=== PATIENT | female | born 1980 | race Caucasian/White ===

== ENCOUNTER 2017-02-18 18:46 | Emergency (ER) | payer OTHER ==
[2017-02-18] MEDS ORDERED: Fluor-I-Strip/Ful-Flo OP ONE ×2 (19:08→19:31)
[2017-02-18] MEDS ORDERED: Eye-Stream Solution ONE (19:08)
[2017-02-18] MEDS ORDERED: TETRACAINE 0.5% STERI-UNIT SOL OP ONE (19:12)
--- NOTE | 2017-02-18 19:26 | ERPHSYRPT ---
- History of Present Illness Time Seen by Provider: 02/18/17 19:13 Source: patient Exam Limitations: no limitations Patient Subjective Stated Complaint: PT REPORTS SHE HAD DAILY CONTACTS IN FOR [facility] WHEN SHE TOOK THEM OUT HER RIGHT EYE BECAME IRRITATED-WORSENING WITH TIME Triage Nursing Assessment: PT PINK WARM ET [id number] NOTED TO RIGHT EYE- NO DRAINAGE NOTED Physician History: The patient is a 36-year-old female complaining that she wore her daily contact lenses for week. Beginning yesterday her right I was beginning to itch and burn. It is worse today. The contact is out at this time. She also complains that she "shattered her right heel" 2 years ago. She had surgery with plates. She has an MRI. She was not able to get into her doctor because she was 10 minutes late the other day. She wants something for pain. Location: right eye Severity: moderate Apparent Injury: no Associated Symptoms: pain, burning, itching, sensitivity to light, redness Visual Assistive Devices: Contacts Allergies/Adverse Reactions: No Known Drug Allergies Allergy (Verified 02/18/17 19:02) Hx Tetanus, Diphtheria Vaccination/Date Given: Yes Hx Influenza Vaccination/Date Given: No Hx Pneumococcal Vaccination/Date Given: No Immunizations Up to Date: Yes - Review of Systems Constitutional: No Fever, No Chills Eyes: Eye Pain, Eye Redness, Itchy, Photophobia Ears, Nose, & Throat: No Symptoms Respiratory: No Cough, No Dyspnea Cardiac: No Chest Pain, No Edema, No Syncope Abdominal/Gastrointestinal: No Abdominal Pain, No Nausea, No Vomiting, No Diarrhea Genitourinary Symptoms: No Dysuria Musculoskeletal: No Back Pain, No Neck Pain Skin: No Rash Neurological: No Dizziness, No Focal Weakness, No Sensory Changes Psychological: No Symptoms Endocrine: No Symptoms Hematologic/Lymphatic: No Symptoms Immunological/Allergic: No Symptoms All Other Systems: Reviewed and Negative - Past Medical History Pertinent Past Medical History: Yes Neurological History: No Pertinent History ENT History: No Pertinent History Cardiac History: No Pertinent History Respiratory History: No Pertinent History Endocrine Medical History: No Pertinent History Musculoskeletal History: Fibromyalgia, Other GI Medical History: No Pertinent History History: No Pertinent History Psycho-Social History: Anxiety, Depression, Panic Disorder Female Reproductive Disorders: No Pertinent History Other Medical History: domitila spotted mountain fever. lyme disease - Past Surgical History Past Surgical History: Yes Neuro Surgical History: No Pertinent History Cardiac: No Pertinent History Respiratory: No Pertinent History Gastrointestinal: No Pertinent History Genitourinary: No Pertinent History Musculoskeletal: No Pertinent History Female Surgical History: Tubal Ligation Other Surgical History: port placed and removed, tonsils - Social History Smoking Status: Current every day smoker How long have you smoked: 15 years Exposure to second hand smoke: No Drug Use: marijuana Patient Lives Alone: No - Female History Hx Last Menstrual Period: LAST MONTH Hx Now: No - Nursing Vital Signs Nursing Vital Signs: Initial Vital Signs Temperature 98.9 F 02/18/17 18:58 Pulse Rate 95 H 02/18/17 18:58 Respiratory Rate 20 02/18/17 18:58 Blood Pressure 127/91 02/18/17 18:58 O2 Sat by Pulse Oximetry 96 02/18/17 18:58 Pain Scale Pain Intensity 10 - Physical Exam General Appearance: mild distress Vision Acuity Degree Evaluation Phase: Uncorrected Vision Acuity Right Eye: 20/100 Vision Acuity Left Eye: 20/20 Eye Exam: right eye: conjunctival inflammation, erythema, left eye: normal inspection Ears, Nose, Throat Exam: normal ENT inspection Neck Exam: normal inspection Respiratory Exam: normal breath sounds Cardiovascular Exam: regular rate/rhythm Gastrointestinal Exam: soft Extremity Exam: swelling (right heel and foot) Neurologic: alert Skin Exam: normal color SpO2 Interpretation: normal SpO2: 96 Oxygen Delivery: Room Air Ordered Tests: Medication Summary Discontinued Medications Generic Name Dose Route Start Last Admin Trade Name Freq PRN Reason Stop Dose Admin Eye Irrigation Solution Confirm 02/18/17 19:08 Eye-Stream Solution Administered 02/18/17 19:09 Dose 30 ml .ROUTE .STK-MED ONE Fluorescein Sodium Confirm 02/18/17 19:08 Vouif-A-Klsrg/Ful-Ata Administered 02/18/17 19:09 Dose 1 mg OP .STK-MED ONE Tetracaine HCl Confirm 02/18/17 19:12 Tetracaine 0.5% Steri-Unit Raquel Administered 02/18/17 19:13 Dose 4 ml OP .STK-MED ONE - Departure Time of Disposition: 19:30 Departure Disposition: Home Clinical Impression: Conjunctivitis, Chronic pain of right heel Condition: Stable Critical Care Time: No Referrals: [facility] [Primary Care Provider] - Additional Instructions: You have right eye conjunctivitis. Take the Tobradex drops every 2 hours in the right eye for one week. Leave the contact out of your right eye for one week until healed. You also have chronic pain in her right heel. You were given Toradol 60 mg by IM injection. Take naproxen 500 mg twice a day as needed. Follow-up as scheduled. Prescriptions: Naproxen 500 mg PO BID PRN #30 tablet.
[2017-02-18] MEDS ORDERED: TETRACAINE 0.5% STERI-UNIT SOL OP STA (19:31)
[2017-02-18] MEDS ORDERED: TORAdol 30 mg Injection IM ONE (19:32)
[2017-02-18] MEDS ORDERED: TORAdol 30 mg Injection ONE (19:42)
[2017-02-18 20:04] VITALS: BP 116/79; PULSE 90; O2SAT 99
[2017-02-18] MEDS ORDERED: Eye-Stream Solution OP ONE (20:07)
== END 2017-02-18 20:10 | disposition home or self-care (01) ==
LOC: ED 18:46
DX: H10.9 Unspecified conjunctivitis (principal); M79.671 Pain in right foot; G89.29 Other chronic pain
CPT/HCPCS: 96372; 99284; J1885; A9270-GY

== ENCOUNTER 2017-02-25 20:36 | Emergency (ER) | payer OTHER ==
[2017-02-25 21:53] VITALS: O2SAT 95
--- NOTE | 2017-02-25 22:12 | ERPHSYRPT ---
- History of Present Illness Time Seen by Provider: 02/25/17 22:07 Source: patient, family Exam Limitations: no limitations Patient Subjective Stated Complaint: states waas bitten by an unknown dog today at 1300 in the [place] area. PW site at top left foot and at the back of the heel Triage Nursing Assessment: PW site noted to top of left foot approx 1cm with no active bleeding noted. PW site on achilles area with no active bleeding noted. + pedal pulse present. states a unknown dog bit her while she was on her moped. Physician History: pt was bitten by a dog unknown today - has had tet shot previously tender left ankle and achilles with small lacs Method of Injury: other (dog bite) Occurred: this afternoon Quality: constant, throbbing Severity of Pain-Max: moderate Severity of Pain-Current: moderate Lower Extremities Pain: leg: left, ankle: left Modifying Factors: Improves With: immobilization, movement Associated Symptoms: unable to bear weight Allergies/Adverse Reactions: No Known Drug Allergies Allergy (Verified 02/25/17 23:37) Hx Tetanus, Diphtheria Vaccination/Date Given: Yes Hx Influenza Vaccination/Date Given: Yes Hx Pneumococcal Vaccination/Date Given: No - Review of Systems Constitutional: No Fever, No Chills Eyes: No Symptoms Ears, Nose, & Throat: No Symptoms Respiratory: No Cough, No Dyspnea Cardiac: No Chest Pain, No Edema, No Syncope Abdominal/Gastrointestinal: No Abdominal Pain, No Nausea, No Vomiting, No Diarrhea Genitourinary Symptoms: No Dysuria Musculoskeletal: No Back Pain, No Neck Pain Skin: Other (lac left ankle and achilles), No Rash Neurological: No Dizziness, No Focal Weakness, No Sensory Changes Psychological: No Symptoms Endocrine: No Symptoms All Other Systems: Reviewed and Negative - Past Medical History Pertinent Past Medical History: Yes Neurological History: No Pertinent History ENT History: No Pertinent History Cardiac History: No Pertinent History Respiratory History: No Pertinent History Endocrine Medical History: No Pertinent History Musculoskeletal History: Fibromyalgia, Other GI Medical History: No Pertinent History History: No Pertinent History Psycho-Social History: Anxiety, Depression, Panic Disorder Female Reproductive Disorders: No Pertinent History Other Medical History: domitila spotted mountain fever. lyme disease - Past Surgical History Past Surgical History: Yes Neuro Surgical History: No Pertinent History Cardiac: No Pertinent History Respiratory: No Pertinent History Gastrointestinal: No Pertinent History Genitourinary: No Pertinent History Musculoskeletal: No Pertinent History Female Surgical History: Tubal Ligation Other Surgical History: port placed and removed, tonsils - Social History Smoking Status: Current every day smoker How long have you smoked: 15 years Exposure to second hand smoke: No Drug Use: none Patient Lives Alone: No - Female History Hx Now: No - Nursing Vital Signs Nursing Vital Signs: Initial Vital Signs Temperature 97.9 F 02/25/17 21:42 Pulse Rate 78 02/25/17 21:42 Respiratory Rate 16 02/25/17 21:42 Blood Pressure 124/55 02/25/17 21:42 O2 Sat by Pulse Oximetry 95 02/25/17 21:42 Pain Scale Pain Intensity 5 - Physical Exam General Appearance: no apparent distress, alert Eyes, Ears, Nose, Throat Exam: moist mucous membranes Neck Exam: non-tender, supple Cardiovascular/Respiratory Exam: chest non-tender, normal breath sounds, regular rate/rhythm, no respiratory distress Gastrointestinal/Abdominal Exam: non-tender, guarding Back Exam: normal inspection, No vertebral tenderness Hips Exam: bilateral: non-tender, normal inspection, normal range of motion, no evidence of injury Legs Exam: right leg: non-tender, normal inspection, normal range of motion, no evidence of injury, left leg: pain, soft tissue tenderness, swelling, other ( lac posterior) Knees Exam: bilateral knee: non-tender, normal inspection, normal range of motion, no evidence of injury Ankle Exam: right ankle: non-tender, normal inspection, normal range of motion, no evidence of injury, left ankle: abrasions/laceration, bone tenderness, pain, soft tissue tenderness, swelling Foot Exam: bilateral foot: non-tender, normal inspection, normal range of motion , no evidence of injury Neuro/Tendon Exam: normal sensation, normal motor functions Mental Status Exam: alert, oriented x 3, cooperative Skin Exam: normal color, warm, dry SpO2 Interpretation: normal SpO2: 95 Oxygen Delivery: Room Air - Course Nursing assessment & vital signs reviewed: Yes - CT Exams Left Lower Extremity CT Interpretation: Tele-radiologist Report, No Fracture, Other (soft tissue gas as in wound, no mention of tendon disruption or bone penetration) Ordered Tests: Active Orders 24 hr Category Date Time Status LOWER EXTREMITY WO CONTRAST [CT] Stat Exams 02/25/17 22:12 Taken Medication Summary Discontinued Medications Generic Name Dose Route Start Last Admin Trade Name Freq PRN Reason Stop Dose Admin Amoxicillin/Clavulanate Potassium 875 mg 02/25/17 23:22 02/25/17 23:41 Augmentin 875-125 Tablet PO 02/25/17 23:23 875 mg STAT ONE Administration Amoxicillin/Clavulanate Potassium Confirm 02/25/17 23:39 Augmentin 875-125 Tablet Administered 02/25/17 23:40 Dose 875 mg .ROUTE .STK-MED ONE Lidocaine HCl Confirm 02/25/17 23:58 Xylocaine 1% Hcl 20 Ml Mdv Administered 02/25/17 23:59 Dose 1 ml .ROUTE .STK-MED ONE Lidocaine HCl 5 ml 02/26/17 00:06 02/26/17 00:09 Xylocaine 1% Hcl 20 Ml Mdv IJ 02/26/17 00:07 5 ml STAT ONE Administration Rabies Immune Globulin 1,000 unit 02/25/17 23:12 02/25/17 23:41 Imogam Rabies-Ht 150 Unit/Ml 2ml IM 02/25/17 23:13 Not Given .ONCE ONE Rabies Vaccine Human Diploid Cell 2.5 unit 02/25/17 23:09 02/25/17 23:53 Imovax Rabies Vaccine 2.5 Units IM 02/25/17 23:10 Not Given .ONCE ONE - Progress Progress: improved, re-examined Progress Note: 02/25/17 23:41 after discussion of risk and benfit of rabies vaccine the pt prefers to decline at this time and attempt to locate the animal and will f/u to [facility] Dept monday for rabies advise and reconsider at that time and also try to locate and quarantine the animal; SHe will also have wound check by PCP for her wounds. monday and return meantime if further concerns. 02/26/17 00:20 pt advised that even with CT there could be infection develop inthe tendon area and that penetration could have occurred and may ultimately require drainage if infection occurs 02/26/17 00:23 discussed risk/benefit of suturing and pt wishes limited closure of largest wound; Counseled pt/family regarding: diagnosis, need for follow-up, rad results - Departure Time of Disposition: 23:43 Departure Disposition: Home Clinical Impression: Dog bite of ankle Condition: Good Critical Care Time: No Referrals: [facility] [Primary Care Provider] - Instructions: Animal Bites Additional Instructions: followup with your Dr. to recheck wound Monday and return meantime if any concern; ask police to help locate and quarantine the suspected animals, and report to health dept monday for further discussion and advice as it may be best to begin shots if animal cannot be located. although the CT di dnot show it, a tendon injury could still be present requiring treatment by ortho dr or an infection could devlope also requiring open drainage; Prescriptions: Amoxicillin/Potassium Clav [Augmentin 875-125 Tablet] 875 mg PO BID #20 tablet Hydrocodone/Acetaminophen [[place] 5-325 Tablet] 1 each PO Q4-6HPRN PRN #10 tablet PRN Reason: Pain
[2017-02-25] MEDS ORDERED: IMOVAX RABIES VACCINE 2.5 UNITS IM ONE (23:09)
[2017-02-25] MEDS ORDERED: RABIES IMMUNE GLOBULIN 150 UNIT/ML IM ONE (23:12)
[2017-02-25] MEDS ORDERED: Augmentin 875-125 Tablet PO ONE (23:22)
[2017-02-25] MEDS ORDERED: Augmentin 875-125 Tablet ONE (23:39)
[2017-02-25] MEDS ORDERED: XYLOCAINE 1% HCL 20 ML MDV ONE (23:58)
[2017-02-26] MEDS ORDERED: XYLOCAINE 1% HCL 20 ML MDV IJ ONE (00:06)
[2017-02-26 01:13] VITALS: BP 110/70; PULSE 76
--- NOTE | 2017-02-26 08:43 | XRAY ---
Indication: Dog bite. Multiple contiguous axial images obtained through the left ankle. Sagittal and coronal reformatted images obtained. Comparison: None Left ankle mortise appears anatomic. No effusion. There are several tiny air bubbles in the anterior lateral ankle and posterior lateral lower leg soft tissues with mild soft tissue swelling. No acute fracture, dislocation, or radiopaque foreign body. Remaining visualized noncontrasted soft tissues unremarkable. Impression: Soft tissue swelling and air bubbles as detailed presumed related to injury. Gas-forming bacterial infection not completely excluded. Remaining CT left ankle is negative. Comment: Preliminary interpretation was made by [facility]. No discrepancy. CTDI 63.19
== END 2017-02-26 01:11 | disposition home or self-care (01) ==
LOC: ED 20:36
DX: S91.052A Open bite, left ankle, initial encounter (principal); W54.0XXA Bitten by dog, initial encounter
CPT/HCPCS: 73700; 90376; 90675; 96372; 99284; A9270-GY

== ENCOUNTER 2017-10-03 17:45 | Emergency (ER) | payer OTHER ==
[2017-10-03 18:00] VITALS: BP 143/94; PULSE 88; O2SAT 99
[2017-10-03] MEDS ORDERED: Eye-Stream Solution OP ONE (18:14)
[2017-10-03] MEDS ORDERED: Fluor-I-Strip/Ful-Flo OP ONE ×2 (18:14→18:17)
[2017-10-03] MEDS ORDERED: TETRACAINE 0.5% STERI-UNIT SOL OP STA (18:14)
[2017-10-03] MEDS ORDERED: TETRACAINE 0.5% STERI-UNIT SOL OP ONE (18:17)
[2017-10-03] MEDS ORDERED: Eye-Stream Solution ONE (18:17)
--- NOTE | 2017-10-03 18:30 | ERPHSYRPT ---
- History of Present Illness Time Seen by Provider: 10/03/17 18:10 Source: patient Exam Limitations: no limitations Patient Subjective Stated Complaint: pt reports she fell asleep with her contacts in a few days ago-reports pain redness to left eye-states when she wakes up it is matted shut Triage Nursing Assessment: pt pink warm and dry-redness noted to left eye-pt reports vision to be 200/100-no drainage noted at this time-no tearing noted at this time Physician History: This is a 36-year-old white female she arrives with complaint of pain in her left eye symptoms for 3-4 days. She states she left her contacts in overnight 3-4 days ago she is having pain and drainage in her left eye. Timing/Duration: day(s) (3-4 days) Location: left eye Apparent Injury: yes (patient states she left her contact in too long left eye) Associated Symptoms: pain, burning, sensitivity to light, redness, matting Visual Assistive Devices: Contacts Chemical Exposure: No Trauma: No Allergies/Adverse Reactions: No Known Drug Allergies Allergy (Verified 10/03/17 18:00) Hx Tetanus, Diphtheria Vaccination/Date Given: Yes (2014) Hx Influenza Vaccination/Date Given: No Hx Pneumococcal Vaccination/Date Given: No Immunizations Up to Date: Yes - Review of Systems Constitutional: No Fever, No Chills Eyes: Discharge, Eye Pain, Eye Redness, Tearing Ears, Nose, & Throat: No Symptoms Respiratory: No Cough, No Dyspnea Cardiac: No Chest Pain, No Edema, No Syncope Abdominal/Gastrointestinal: No Abdominal Pain, No Nausea, No Vomiting, No Diarrhea Genitourinary Symptoms: No Dysuria Musculoskeletal: No Back Pain, No Neck Pain Skin: No Rash Neurological: No Dizziness, No Focal Weakness, No Sensory Changes Psychological: No Symptoms Endocrine: No Symptoms All Other Systems: Reviewed and Negative - Past Medical History Pertinent Past Medical History: Yes Neurological History: No Pertinent History ENT History: No Pertinent History Cardiac History: No Pertinent History Respiratory History: No Pertinent History Endocrine Medical History: No Pertinent History Musculoskeletal History: Fibromyalgia, Other GI Medical History: No Pertinent History History: No Pertinent History Psycho-Social History: Anxiety, Depression, Panic Disorder Female Reproductive Disorders: No Pertinent History Other Medical History: domitila spotted mountain fever. lyme disease - Past Surgical History Past Surgical History: Yes Neuro Surgical History: No Pertinent History Cardiac: No Pertinent History Respiratory: No Pertinent History Gastrointestinal: No Pertinent History Genitourinary: No Pertinent History Musculoskeletal: No Pertinent History Female Surgical History: Tubal Ligation Other Surgical History: port placed and removed, tonsils - Social History Smoking Status: Current every day smoker How long have you smoked: yrs Exposure to second hand smoke: No Drug Use: none Patient Lives Alone: No - Female History Hx Now: No - Nursing Vital Signs Nursing Vital Signs: Initial Vital Signs Temperature 97.9 F 10/03/17 17:56 Pulse Rate 88 10/03/17 17:56 Respiratory Rate 18 10/03/17 17:56 Blood Pressure 143/94 10/03/17 17:56 O2 Sat by Pulse Oximetry 99 10/03/17 17:56 Pain Scale Pain Intensity 0 - Physical Exam General Appearance: moderate distress, alert (he regards to both eyes are disallow ) Vision Acuity Degree Evaluation Phase: Uncorrected Vision Acuity Right Eye: 20/100 Vision Acuity Left Eye: 20/100 Eye Exam: right eye: normal inspection, PERRL, left eye: other (patient's left eye cornea appears to be somewhat opaque, both lids are everted left side no foreign body left eye is soft left eye stained with flouriscein diffuse uptake) , bilateral eye: vision changes (patient 20/100 both eyes) Ears, Nose, Throat Exam: normal ENT inspection, TMs normal, pharynx normal (S weird trauma related to that was ) Neck Exam: normal inspection, full range of motion Respiratory Exam: normal breath sounds, lungs clear, airway intact Cardiovascular Exam: regular rate/rhythm, normal heart sounds, normal peripheral pulses, No murmur Gastrointestinal Exam: soft, normal bowel sounds, No tenderness, No distention, No mass, No guarding Extremity Exam: normal inspection, normal range of motion Neurologic: alert, oriented x 3, cooperative, supervisor cap and hat production II-XII nml as tested Skin Exam: normal color SpO2 Interpretation: normal (99%) SpO2: 99 Oxygen Delivery: Room Air - Course Nursing assessment & vital signs reviewed: Yes Ordered Tests: Active Orders 24 hr Category Date Time Status Visual Acuity STAT Care 10/03/17 18:14 Active Medication Summary Discontinued Medications Generic Name Dose Route Start Last Admin Trade Name Freq PRN Reason Stop Dose Admin Ciprofloxacin 2.5 ml 10/03/17 18:48 Ciloxan Ophth OP 10/03/17 18:49 STAT ONE Eye Irrigation Solution 15 ml 10/03/17 18:14 10/03/17 18:19 Eye-Stream Solution OP 10/03/17 18:15 15 ml STAT ONE Administration Eye Irrigation Solution Confirm 10/03/17 18:17 Eye-Stream Solution Administered 10/03/17 18:18 Dose 30 ml .ROUTE .STK-MED ONE Fluorescein Sodium 1 mg 10/03/17 18:14 10/03/17 18:19 Wxtgg-B-Xjjtn/Ful-Ata OP 10/03/17 18:15 1 mg STAT ONE Administration Fluorescein Sodium Confirm 10/03/17 18:17 Yypmh-K-Rbsur/Ful-Ata Administered 10/03/17 18:18 Dose 1 mg OP .STK-MED ONE Tetracaine HCl 4 ml 10/03/17 18:14 10/03/17 18:19 Tetracaine 0.5% Steri-Unit Raquel OP 10/03/17 18:15 4 ml STAT STA Administration Tetracaine HCl Confirm 10/03/17 18:17 Tetracaine 0.5% Steri-Unit Raquel Administered 10/03/17 18:18 Dose 4 ml OP .STK-MED ONE - Progress Progress: improved Progress Note: 10/03/17 18:31 This is a 36-year-old white female she arrives with complaint of left eye pain for 3-4 days she states she left her contact in overnight 3-4 days ago she is having pain in her left eye he states that she has discharge from her left eye she has erythema to the left eye. Patient has bilateral vision of 20/100. On examination both lids are everted the patient's left eye no foreign bodies are seen tetracaine 0.5% was instilled in the left eye to facilitate examination. There appear to be area which appear to be somewhat opacified lying on top of the patient's left eye. She is stained with floor seen this shows somewhat diffuse uptake of the floor same. Left eye is rinsed with sterilized wash solution. Patient appears to have corneal ulceration. Will contact patient's sales representative groceries. 10/03/17 18:[address] Melecio Macdonald, (the patient's sales representative groceries), I discussed the patient's clinical presentation as well as her physical findings. He requested that we place the patient on Ciloxan drops. Will also place patient on analgesia (oral) he states he would like to see the patient at 8:40 AM tomorrow morning Will discharge patient patient is to not wear her contacts. . - Departure Time of Disposition: 18:42 Departure Disposition: Home Clinical Impression: Corneal ulceration Qualifiers: Laterality: left Qualified Code(s): H16.002 - Unspecified corneal ulcer, left eye Condition: Fair Critical Care Time: No Referrals: DOCTOR,NO FAMILY [Primary Care Provider] - Additional Instructions: Return home. Ciloxan drops 0.3% one to 2 drops left eye 4 times a day 5 days. Bradley as prescribed. Follow-up with Dr. Melecio Macdonald tomorrow morning at 8:40 AM. Do not wear your contacts. Drive home with windows rolled up to avoid foreign bodies in your left eye we will not be able to feel these until tetracaine wears off. Return for acute distress or for severe symptoms Bradley as prescribed. no TV watching, computers, or reading Prescriptions: Hydrocodone/Acetaminophen [[place] 5-325 Tablet] 1 each PO Q4-6HPRN PRN #10 tablet MDD 6 tablets PRN Reason: Pain
[2017-10-03] MEDS ORDERED: Ciloxan OPHTH OP ONE (18:48)
[2017-10-03] MEDS ORDERED: Ciloxan OPHTH ONE (18:54)
== END 2017-10-03 19:09 | disposition home or self-care (01) ==
LOC: ED 17:45
DX: H16.002 Unspecified corneal ulcer, left eye (principal)
CPT/HCPCS: 99283; A9270-GY

== ENCOUNTER 2017-12-22 10:12 | Emergency (ER) | payer OTHER ==
[2017-12-22 10:37] VITALS: BP 118/77; PULSE 93; O2SAT 98
--- NOTE | 2017-12-22 10:44 | ERPHSYRPT ---
- History of Present Illness Time Seen by Provider: 12/22/17 10:38 Source: patient Exam Limitations: no limitations Patient Subjective Stated Complaint: states has had abscesses on right forearm and left axilla for one week. does not have a family doctor and has had no treatment for the abscess. Triage Nursing Assessment: small red area noted to right forearm and left axilla. no drainage noted. no fever. denies any other symptoms. Physician History: 37-year-old white female with a raised area on her right mid forearm ulnar aspect since today, also with several small pustules/abscesses which appears to have been popped in the past for 3 weeks. No current drainage. No fevers no nausea no vomiting. Patient states the areas are tender. Past medical history includes fibromyalgia, anxiety, depression, panic disorder , [place] spotted fever, Lyme disease Past surgical history includes tubal ligation, port placed, tonsils removed. Social history positive occasional alcohol use positive tobacco denies illicit drug use. Timing/Duration: other (axillary area for 3 weeks right forearm since last pm.) Severity: moderate Modifying Factors: Improves With: nothing Associated Symptoms: other (bumps in left axilla 3 weeks, bump on right forearm since today), No nausea, No vomiting, No abdominal pain, No shortness of breath, No heartburn, No diaphoresis, No cough, No chills, No chest pain, No fever, No headaches, No loss of appetite, No malaise, No rash, No syncope, No seizure, No weakness Allergies/Adverse Reactions: No Known Drug Allergies Allergy (Verified 12/22/17 10:30) Hx Tetanus, Diphtheria Vaccination/Date Given: Yes Hx Influenza Vaccination/Date Given: No Hx Pneumococcal Vaccination/Date Given: No - Review of Systems Constitutional: No Fever, No Chills Eyes: No Symptoms Ears, Nose, & Throat: No Symptoms Respiratory: No Cough, No Dyspnea Cardiac: No Chest Pain, No Edema, No Syncope Abdominal/Gastrointestinal: No Abdominal Pain, No Nausea, No Vomiting, No Diarrhea Genitourinary Symptoms: No Dysuria Musculoskeletal: No Back Pain, No Neck Pain Skin: Other (Several firm areas in left axilla for 3 weeks, raised area left forearm since last pm), No Rash Neurological: No Dizziness, No Focal Weakness, No Sensory Changes Psychological: No Symptoms Endocrine: No Symptoms All Other Systems: Reviewed and Negative - Past Medical History Pertinent Past Medical History: Yes Neurological History: No Pertinent History ENT History: No Pertinent History Cardiac History: No Pertinent History Respiratory History: No Pertinent History Endocrine Medical History: No Pertinent History Musculoskeletal History: Fibromyalgia, Other GI Medical History: No Pertinent History History: No Pertinent History Psycho-Social History: Anxiety, Depression, Panic Disorder Female Reproductive Disorders: No Pertinent History Other Medical History: domitila spotted [place] fever. lyme disease - Past Surgical History Past Surgical History: Yes Neuro Surgical History: No Pertinent History Cardiac: No Pertinent History Respiratory: No Pertinent History Gastrointestinal: No Pertinent History Genitourinary: No Pertinent History Musculoskeletal: No Pertinent History Female Surgical History: Tubal Ligation Other Surgical History: port placed and removed, tonsils - Social History Smoking Status: Current every day smoker How long have you smoked: 23 Exposure to second hand smoke: Yes Drug Use: none Patient Lives Alone: No - Female History Hx Last Menstrual Period: 11/19/17 Hx Now: No - Nursing Vital Signs Nursing Vital Signs: Initial Vital Signs Temperature 98.3 F 12/22/17 10:23 Pulse Rate 93 H 12/22/17 10:23 Respiratory Rate 16 12/22/17 10:23 Blood Pressure 118/77 12/22/17 10:23 O2 Sat by Pulse Oximetry 98 12/22/17 10:23 Pain Scale Pain Intensity 6 - Physical Exam General Appearance: no apparent distress, alert Eye Exam: PERRL/EOMI, eyes nml inspection Ears, Nose, Throat Exam: normal ENT inspection, TMs normal, pharynx normal, moist mucous membranes Neck Exam: normal inspection, non-tender, supple, full range of motion Respiratory Exam: normal breath sounds, lungs clear, No respiratory distress Cardiovascular Exam: regular rate/rhythm, normal heart sounds, normal peripheral pulses Gastrointestinal/Abdomen Exam: soft, normal bowel sounds, No tenderness, No mass Back Exam: normal inspection, normal range of motion, No CVA tenderness, No vertebral tenderness Extremity Exam: normal inspection, normal range of motion, pelvis stable Neurologic Exam: alert, oriented x 3, cooperative, 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, normal mood/affect, nml cerebellar function, nml station & gait, sensation nml, No motor deficits Skin Exam: other (right forearm with raised area similar to pustule but not draining 0.5 cm underlying area firm flat 2 cm occurs on ulnar aspect mid forearm (right), left axilla with several areas appear to pustules which have been popped in past, firm, no lymphadenopathy) SpO2 Interpretation: normal (98%) SpO2: 98 Oxygen Delivery: Room Air - Course Nursing assessment & vital signs reviewed: Yes - Progress Progress: improved Progress Note: 12/22/17 10:44 This is a 37-year-old white female she arrives with several areas in her left axilla the appear to have pustules which have been popped this is very likely is her adenitis it does not appear to be active at this time. She does have a 0.5 cm raised area right mid forearm ulnar aspect with underlying 2 cm area which is firm with palpation. Possibly could be early abscess not ready to be drained. Will go ahead place patient on Bactrim DS one orally twice a day for 10 days. Patient clean the area apply bacitracin daily. Tylenol or Advil or pain. - Departure Time of Disposition: 10:45 Departure Disposition: Home Clinical Impression: Hidradenitis axillaris, Pustule Condition: Fair Critical Care Time: No Referrals: DOCTOR,NO FAMILY [Primary Care Provider] - Additional Instructions: Return home clean area and apply bacitracin daily. Bactrim DS as prescribed. Tylenol every 4 hours or Motrin every 6 hours as needed for pain. Follow-up with your family doctor if symptoms are worse, no better in 48 hours or persist longer than one week. Return for acute distress or for severe symptoms. Prescriptions: Smz/Tmp Ds Tablet [Bactrim Ds Tablet] 1 tab PO BID #20 tablet
== END 2017-12-22 10:55 | disposition home or self-care (01) ==
LOC: ED 10:12
DX: L73.2 Hidradenitis suppurativa (principal); L08.9 Local infection of the skin and subcutaneous tissue, unspecified
CPT/HCPCS: 99283

== ENCOUNTER 2019-03-01 03:45 | Observation (INO) | payer MEDICAID, OTHER ==
[2019-03-01] MEDS ORDERED: Zemuron 100 MG/10 ML IV ONE (03:49)
[2019-03-01] MEDS ORDERED: Amidate 20 MG/10 ML IV ONE (03:49)
[2019-03-01] MEDS ORDERED: Sodium Chloride 0.9% 1000 ML 1,000 ML IV STA ×3 (03:49→13:22)
[2019-03-01] MEDS ORDERED: Pepcid 20 MG VIAL IV ONE ×2 (04:02→04:58)
[2019-03-01] MEDS ORDERED: Ativan 2 MG/1 ML VIAL IV ONE ×3 (04:02→08:16)
--- NOTE | 2019-03-01 04:12 | ERPHSYRPT ---
- History of Present Illness Time Seen by Provider: 03/01/19 03:45 Source: EMS Exam Limitations: clinical condition, intoxication Physician History: Patient brought into the emergency department by EMS after her father called them due to patient being unresponsive for two hours after being dropped off at home. Timing/Duration: hour(s) (2) Character of Deficits: general (difuse), impaired swallowing, other ( unresponsive) Deficits: no difficulties Baseline/Normal Cognition: alert oriented x 3 Current Cognition: poor alertness (patient is unresponsive) Baseline Gait: walks w/o assistance Associated Symptoms: loss of consciousness, vomiting, No seizures Allergies/Adverse Reactions: No Known Drug Allergies Allergy (Verified 12/22/17 10:30) Home Medications: No Reportable Medications [No Reported Medications] 03/01/19 [History] Hx Tetanus, Diphtheria Vaccination/Date Given: Yes Hx Influenza Vaccination/Date Given: No Hx Pneumococcal Vaccination/Date Given: No - Review of Systems Constitutional: Lethargy Ears, Nose, & Throat: No Mouth Swelling, No Throat Swelling Respiratory: Dyspnea, No Cyanosis Abdominal/Gastrointestinal: Vomiting Skin: No Rash, No Skin Lesions Neurological: Lethargy, No Seizure, No Tremors Psychological: Alcohol Abuse Hematologic/Lymphatic: No Easy Bleeding, No Easy Bruising - Past Medical History Pertinent Past Medical History: Yes Neurological History: No Pertinent History ENT History: No Pertinent History Cardiac History: No Pertinent History Respiratory History: No Pertinent History Endocrine Medical History: No Pertinent History Musculoskeletal History: Fibromyalgia, Other GI Medical History: No Pertinent History History: No Pertinent History Psycho-Social History: Anxiety, Depression, Panic Disorder Female Reproductive Disorders: No Pertinent History Other Medical History: domitila spotted [place] fever. lyme disease - Past Surgical History Past Surgical History: Yes Neuro Surgical History: No Pertinent History Cardiac: No Pertinent History Respiratory: No Pertinent History Gastrointestinal: No Pertinent History Genitourinary: No Pertinent History Musculoskeletal: No Pertinent History Female Surgical History: Tubal Ligation Other Surgical History: port placed and removed, tonsils - Social History Smoking Status: Current every day smoker How long have you smoked: 23 Exposure to second hand smoke: Yes Drug Use: none Patient Lives Alone: No - Female History Hx Now: No - Nursing Vital Signs Nursing Vital Signs: Initial Vital Signs O2 Sat by Pulse Oximetry 100 03/01/19 03:49 Pain Scale Pain Intensity 0 - [place] Coma Scale Best Eye Response ([place]): (1) no response Best Verbal Response ([place]): (1) no verbal response Best Motor Response ([place]): (1) no motor response Caleb Total: 3 - Physical Exam General Appearance: moderate distress, other (unresponsive) Ears, Nose, Throat Exam: TMs normal, pharyngeal erythema (secretions in the posterior oropharynx, covering the epiglottis), No TM abnormal (R), No TM abnormal (L) Neck Exam: normal inspection, supple, No JVD, No lymphadenopathy, No subcutaneous emphysema Respiratory: airway intact, accessory muscle use, rhonchi Cardiovascular: regular rate/rhythm, normal heart sounds, normal peripheral pulses Gastrointestinal: soft, No tenderness (no response caused her to move), No distention Extremity Exam: normal inspection, pelvis stable, No lacerations Peripheral Pulses: carotid (R): 2+, carotid (L): 2+, dorsalis-pedis (R): 2+, dorsalis-pedis (L): 2+ 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 O2 Delivery: Non-rebreather Procedures - Intubation Intubation Indications: airway protection, respiratory distress Intubation Method: orotracheal Tube Size (cm): 7.0 Medications: Etomidate (20mg), Rocuronium (70mg) C-Spine: maintained Endotracheal Tube Confirmation: bilateral breath sounds, positive end tidal CO2 , good rise & fall of chest, stable or inc of O2 sat Intubation Complications: no complications Performed By: ED Physician Post Intubation Xray: Yes Progress/X-ray Impression: 03/01/19 04:[address] of the trachea - Course Nursing assessment & vital signs reviewed: Yes EKG Interpreted by Me: RATE (57), Sinus Yossi, NORMAL AXIS, NORMAL INTERVALS, NORMAL QRS, NORMAL ST-T, Other (negative for any acute changes in comparison to EKG from 07/21/2015) - Radiology Exams Chest X-ray Interpretation: Interpreted by me, Reviewed by me, No Fracture, No Pneumonia, No Pneumothorax, No Infiltrates, Nml Mediastinum, Other (ET in trachea) - CT Exams Head CT Interpretation: Negative, No Fracture, No/Intracranial Hemorrhag Ordered Tests: Active Orders 24 hr Category Date Time Status CO2 Monitoring STAT Care 03/01/19 04:02 Active Java Tech STAT Care 03/01/19 03:49 Active EKG-ER Only STAT Care 03/01/19 04:02 Active Acosta [Catheter-Norris Acosta] STAT Care 03/01/19 04:04 Active IV Insertion STAT Care 03/01/19 04:02 Active NPO (ED) STAT Care 03/01/19 03:49 Active Pulse Oximetry (ED) STAT Care 03/01/19 03:49 Active CHEST 1 VIEW (PORTABLE) Stat Exams 03/01/19 04:14 Taken ACETAMINOPHEN Stat Lab 03/01/19 04:25 Completed ARTERIAL BLOOD GASES Stat Lab 03/01/19 04:03 Completed ARTERIAL BLOOD GASES Stat Lab 03/01/19 04:45 Completed CBC W DIFF Stat Lab 03/01/19 04:25 Completed CMP Stat Lab 03/01/19 04:25 Completed CULTURE,URINE Stat Lab 03/01/19 04:35 Received ETHYL ALCOHOL Stat Lab 03/01/19 04:25 Completed Lactic Acid Stat Lab 03/01/19 04:03 Completed MAGNESIUM Stat Lab 03/01/19 04:25 Completed NT PRO BNP Stat Lab 03/01/19 04:25 Completed PROTIME WITH INR Stat Lab 03/01/19 04:25 Completed PTT Stat Lab 03/01/19 04:25 Completed SALICYLATE Stat Lab 03/01/19 04:25 Completed TROPONIN Q3H Lab 03/01/19 04:25 Completed TROPONIN Q3H Lab 03/01/19 07:15 Ordered TROPONIN Q3H Lab 03/01/19 10:15 Ordered TROPONIN Q3H Lab 03/01/19 13:15 Ordered TROPONIN Q3H Lab 03/01/19 16:15 Ordered UA W/RFX UR CULTURE Stat Lab 03/01/19 04:35 Completed Urine Triage Profile Stat Lab 03/01/19 04:35 Completed Medication Summary Discontinued Medications Generic Name Dose Route Start Last Admin Trade Name Freq PRN Reason Stop Dose Admin Etomidate 20 mg 03/01/19 03:49 03/01/19 03:54 Amidate 20 Mg/10 Ml IV 03/01/19 03:50 20 mg STAT ONE Administration Famotidine 20 mg 03/01/19 04:02 03/01/19 05:02 Pepcid 20 Mg Vial IV 03/01/19 04:03 20 mg STAT ONE Administration Famotidine Confirm 03/01/19 04:58 Pepcid 20 Mg Vial Administered 03/01/19 04:59 Dose 20 mg IV .STK-MED ONE Sodium Chloride 1,000 mls @ 999 mls/hr 03/01/19 03:49 03/01/19 04:25 Sodium Chloride 0.9% 1000 Ml IV 03/01/19 04:49 999 mls/hr .Q1H1M STA Administration Sodium Chloride 1,000 mls @ 999 mls/hr 03/01/19 04:02 Sodium Chloride 0.9% 1000 Ml IV 03/01/19 05:02 .Q1H1M STA Sodium Chloride Confirm 03/01/19 04:22 Sodium Chloride 0.9% 1000 Ml Administered 03/01/19 04:23 Dose 1,000 mls @ ud .ROUTE .STK-MED ONE Sodium Chloride Confirm 03/01/19 04:58 Sodium Chloride 0.9% 1000 Ml Administered 03/01/19 04:59 Dose 1,000 mls @ ud .ROUTE .STK-MED ONE Lorazepam 2 mg 03/01/19 04:02 03/01/19 05:01 Ativan 2 Mg/1 Ml Vial IV 03/01/19 04:03 2 mg STAT ONE Administration Lorazepam Confirm 03/01/19 04:58 Ativan 2 Mg/1 Ml Vial Administered 03/01/19 04:59 Dose 2 mg .ROUTE .STK-MED ONE Rocuronium Remlap 70 mg 03/01/19 03:49 03/01/19 03:56 Zemuron 100 Mg/10 Ml IV 03/01/19 03:50 70 mg STAT ONE Administration Lab/Rad Data: Laboratory Result Diagrams 03/01/19 04:25 03/01/19 04:25 Laboratory Results 03/01/19 03/01/19 03/01/19 Range/Units 04:45 04:35 04:35 WBC (4.0-10.5) K/mm3 RBC (4.1-5.4) M/mm3 Hgb (12.0-16.0) gm/dl Hct (35-47) % MCV (78-100) fl MCH (26-32) pg MCHC (32-36) g/dl RDW (11.5-14.0) % Plt Count (150-450) K/mm3 MPV (6-9.5) fl Gran % (36.0-66.0) % Eos # (Auto) (0-0.5) Absolute Lymphs (auto) (1.0-4.6) Absolute Monos (auto) (0.0-1.3) Lymphocytes % (24.0-44.0) % Monocytes % (0.0-12.0) % Eosinophils % (0.00-5.0) % Basophils % (0.0-0.4) % Absolute Granulocytes (1.4-6.9) Basophils # (0-0.4) PT (9.95-12.35) SECONDS INR (0.8-3.0) APTT (25.3-37.0) SECONDS Puncture Site RIGHT BRACHIAL pCO2 29 L (35-45) mmHg pO2 278 H* (75-100) mmHg Base Excess -3.3 L (-2.0-2.0) O2 Saturation 95.1 (94-100) g/dF ABG pH 7.44 (7.35-7.45) ABG HCO3 19.7 L (22-28) ABG O2 Sat (Measured) 99.9 (95-100) % Yamil Test NOT APPLICABLE A-a Gradient 399 a/A Ratio 0.41 Hemoglobin 12.7 Carboxyhemoglobin 3.8 (0.0-6.9) % THgb Methemoglobin 1.1 L (1.4-1.5) % Potassium 3.8 (3.5-5.1) Temperature 37.0 C POC O2 Flow Rate 100 % Vent Mode A/C Vent Rate 20 /MIN Tidal Volume 550 cc PEEP 5 cmH2O Sodium (137-145) mmol/L Chloride (98-107) mmol/L Carbon Dioxide (22-30) mmol/L Anion Gap (5-15) MEQ/L BUN (7-17) mg/dL Creatinine (0.52-1.04) mg/dL Estimated GFR ML/MIN Glucose (74-106) mg/dL Lactic Acid (0.4-2.0) Calcium (8.4-10.2) mg/dL Magnesium (1.6-2.3) mg/dL Total Bilirubin (0.2-1.3) mg/dL AST (14-36) U/L ALT (0-35) U/L Alkaline Phosphatase (38-126) U/L Troponin I (0.000-0.034) ng/mL NT-Pro-B Natriuret Pep (0-450) pg/mL Serum Total Protein (6.3-8.2) g/dL Albumin (3.5-5.0) g/dL Urine Color STRAW (YELLOW) Urine Appearance CLEAR (CLEAR) Urine pH 5.0 (5-6) Ur Specific [place] 1.011 (1.005-1.025) Urine Protein NEGATIVE (Negative) Urine Ketones SMALL (NEGATIVE) Urine Blood NEGATIVE (0-5) [place]/ul Urine Nitrite NEGATIVE (NEGATIVE) Urine Bilirubin NEGATIVE (NEGATIVE) Urine Urobilinogen NEGATIVE (0-1) mg/dL Ur Leukocyte Esterase NEGATIVE (NEGATIVE) Urine WBC (Auto) 0-2 (0-5) /HPF Urine RBC (Auto) NONE (0-2) /HPF U Epithel Cells (Auto) NONE (FEW) /HPF Urine Bacteria (Auto) NONE (NEGATIVE) /HPF Urine Mucus (Auto) SLIGHT (NEGATIVE) /HPF Urine Culture Reflexed ORDERED SEPARATELY (NO) Urine Glucose NEGATIVE (NEGATIVE) mg/dL Salicylates (2-20) mg/dL Urine Opiates Level NEGATIVE (NEGATIVE) Ur Methadone NEGATIVE (NEGATIVE) Acetaminophen (10-30) ug/ml Urine Barbiturates NEGATIVE (NEGATIVE) Ur Phencyclidine (PCP) NEGATIVE (NEGATIVE) Urine Amphetamine NEGATIVE (NEGATIVE) U Benzodiazepine Level NEGATIVE (NEGATIVE) Urine Cocaine NEGATIVE (NEGATIVE) Urine Marijuana (THC) NEGATIVE (NEGATIVE) Ethyl Alcohol (0-10) mg/dL 03/01/19 03/01/19 03/01/19 Range/Units 04:25 04:25 04:25 WBC (4.0-10.5) K/mm3 RBC (4.1-5.4) M/mm3 Hgb (12.0-16.0) gm/dl Hct (35-47) % MCV (78-100) fl MCH (26-32) pg MCHC (32-36) g/dl RDW (11.5-14.0) % Plt Count (150-450) K/mm3 MPV (6-9.5) fl Gran % (36.0-66.0) % Eos # (Auto) (0-0.5) Absolute Lymphs (auto) (1.0-4.6) Absolute Monos (auto) (0.0-1.3) Lymphocytes % (24.0-44.0) % Monocytes % (0.0-12.0) % Eosinophils % (0.00-5.0) % Basophils % (0.0-0.4) % Absolute Granulocytes (1.4-6.9) Basophils # (0-0.4) PT 11.3 (9.95-12.35) SECONDS INR 1.00 (0.8-3.0) APTT 25.7 (25.3-37.0) SECONDS Puncture Site pCO2 (35-45) mmHg pO2 (75-100) mmHg Base Excess (-2.0-2.0) O2 Saturation (94-100) g/dF ABG pH (7.35-7.45) ABG HCO3 (22-28) ABG O2 Sat (Measured) (95-100) % Yamil Test A-a Gradient a/A Ratio Hemoglobin Carboxyhemoglobin (0.0-6.9) % THgb Methemoglobin (1.4-1.5) % Potassium (3.5-5.1) Temperature C POC O2 Flow Rate % Vent Mode Vent Rate /MIN Tidal Volume cc PEEP cmH2O Sodium (137-145) mmol/L Chloride (98-107) mmol/L Carbon Dioxide (22-30) mmol/L Anion Gap (5-15) MEQ/L BUN (7-17) mg/dL Creatinine (0.52-1.04) mg/dL Estimated GFR ML/MIN Glucose (74-106) mg/dL Lactic Acid (0.4-2.0) Calcium (8.4-10.2) mg/dL Magnesium (1.6-2.3) mg/dL Total Bilirubin (0.2-1.3) mg/dL AST (14-36) U/L ALT (0-35) U/L Alkaline Phosphatase (38-126) U/L Troponin I < 0.012 (0.000-0.034) ng/mL NT-Pro-B Natriuret Pep (0-450) pg/mL Serum Total Protein (6.3-8.2) g/dL Albumin (3.5-5.0) g/dL Urine Color (YELLOW) Urine Appearance (CLEAR) Urine pH (5-6) Ur Specific [place] (1.005-1.025) Urine Protein (Negative) Urine Ketones (NEGATIVE) Urine Blood (0-5) [place]/ul Urine Nitrite (NEGATIVE) Urine Bilirubin (NEGATIVE) Urine Urobilinogen (0-1) mg/dL Ur Leukocyte Esterase (NEGATIVE) Urine WBC (Auto) (0-5) /HPF Urine RBC (Auto) (0-2) /HPF U Epithel Cells (Auto) (FEW) /HPF Urine Bacteria (Auto) (NEGATIVE) /HPF Urine Mucus (Auto) (NEGATIVE) /HPF Urine Culture Reflexed (NO) Urine Glucose (NEGATIVE) mg/dL Salicylates < 1.0 L (2-20) mg/dL Urine Opiates Level (NEGATIVE) Ur Methadone (NEGATIVE) Acetaminophen < 10 L (10-30) ug/ml Urine Barbiturates (NEGATIVE) Ur Phencyclidine (PCP) (NEGATIVE) Urine Amphetamine (NEGATIVE) U Benzodiazepine Level (NEGATIVE) Urine Cocaine (NEGATIVE) Urine Marijuana (THC) (NEGATIVE) Ethyl Alcohol < 10 (0-10) mg/dL 03/01/19 03/01/19 03/01/19 Range/Units 04:25 04:25 04:03 WBC 8.5 (4.0-10.5) K/mm3 RBC 4.25 (4.1-5.4) M/mm3 Hgb 14.1 (12.0-16.0) gm/dl Hct 40.5 (35-47) % MCV 95.3 (78-100) fl MCH 33.2 H (26-32) pg MCHC 34.8 (32-36) g/dl RDW 11.8 (11.5-14.0) % Plt Count 203 (150-450) K/mm3 MPV 9.6 H (6-9.5) fl Gran % 68.2 H (36.0-66.0) % Eos # (Auto) 0.12 (0-0.5) Absolute Lymphs (auto) 2.06 (1.0-4.6) Absolute Monos (auto) 0.50 (0.0-1.3) Lymphocytes % 24.3 (24.0-44.0) % Monocytes % 5.9 (0.0-12.0) % Eosinophils % 1.4 (0.00-5.0) % Basophils % 0.2 (0.0-0.4) % Absolute Granulocytes 5.77 (1.4-6.9) Basophils # 0.02 (0-0.4) PT (9.95-12.35) SECONDS INR (0.8-3.0) APTT (25.3-37.0) SECONDS Puncture Site RIGHT BRACHIAL pCO2 52 H (35-45) mmHg pO2 112 H (75-100) mmHg Base Excess -3.0 L (-2.0-2.0) O2 Saturation 93.4 L (94-100) g/dF ABG pH 7.28 L (7.35-7.45) ABG HCO3 24.4 (22-28) ABG O2 Sat (Measured) 99.5 (95-100) % Yamil Test NOT APPLICABLE A-a Gradient 536 a/A Ratio 0.17 Hemoglobin 14.6 Carboxyhemoglobin 5.1 (0.0-6.9) % THgb Methemoglobin 1.0 L (1.4-1.5) % Potassium 4.1 4.3 (3.5-5.1) Temperature 37.0 C POC O2 Flow Rate 100 % Vent Mode Vent Rate /MIN Tidal Volume cc PEEP cmH2O Sodium 144 (137-145) mmol/L Chloride 107 (98-107) mmol/L Carbon Dioxide 22 (22-30) mmol/L Anion Gap 19.2 H (5-15) MEQ/L BUN 8 (7-17) mg/dL Creatinine 0.52 (0.52-1.04) mg/dL Estimated GFR > 60.0 ML/MIN Glucose 123 H (74-106) mg/dL Lactic Acid 1.1 (0.4-2.0) Calcium 9.6 (8.4-10.2) mg/dL Magnesium 2.1 (1.6-2.3) mg/dL Total Bilirubin 0.70 (0.2-1.3) mg/dL AST 33 (14-36) U/L ALT 20 (0-35) U/L Alkaline Phosphatase 62 (38-126) U/L Troponin I (0.000-0.034) ng/mL NT-Pro-B Natriuret Pep 69.7 (0-450) pg/mL Serum Total Protein 8.1 (6.3-8.2) g/dL Albumin 4.7 (3.5-5.0) g/dL Urine Color (YELLOW) Urine Appearance (CLEAR) Urine pH (5-6) Ur Specific [place] (1.005-1.025) Urine Protein (Negative) Urine Ketones (NEGATIVE) Urine Blood (0-5) [place]/ul Urine Nitrite (NEGATIVE) Urine Bilirubin (NEGATIVE) Urine Urobilinogen (0-1) mg/dL Ur Leukocyte Esterase (NEGATIVE) Urine WBC (Auto) (0-5) /HPF Urine RBC (Auto) (0-2) /HPF U Epithel Cells (Auto) (FEW) /HPF Urine Bacteria (Auto) (NEGATIVE) /HPF Urine Mucus (Auto) (NEGATIVE) /HPF Urine Culture Reflexed (NO) Urine Glucose (NEGATIVE) mg/dL Salicylates (2-20) mg/dL Urine Opiates Level (NEGATIVE) Ur Methadone (NEGATIVE) Acetaminophen (10-30) ug/ml Urine Barbiturates (NEGATIVE) Ur Phencyclidine (PCP) (NEGATIVE) Urine Amphetamine (NEGATIVE) U Benzodiazepine Level (NEGATIVE) Urine Cocaine (NEGATIVE) Urine Marijuana (THC) (NEGATIVE) Ethyl Alcohol (0-10) mg/dL - Progress Progress: improved Progress Note: 03/01/19 04:28 Patient's airway secured immediately and is hemodynamically in good condition. Sinus rhythm on the insurance counselor. Ventilator settings established to take off excess CO2 accumulated prior to coming into the emergency department. Patient has ET confirmed in the trachea via chest x-ray 03/01/19 04:58 Patient's family and friends came to the patient's room. They state patient has been drinking alcohol throughout the day of 02/28/2019 and taken a substance they think is GHB. I reviewed them that the blood alcohol test was negative and they felt that possibly could not be true. Patient's ABG has improved with ventilator settings, so the respiratory rate will be decreased 03/01/19 06:18 Patient sedated on the vent. Sinus rhythm on the insurance counselor, hemodynamically in good condition with good capnography on the monitor and normal oxygenation on the pulse oximetry. Discussed with .: Kristal (@06:06, discussed the patient with Dr Tariq, hospitalist. Dr Tariq would like Dr Murray, Director Of Diversity And Inclusion, to assit with vent management, and if Dr Murray is not able to assist, transfer to [facility].)James (07:15, spoke with Dr Murray, Director Of Diversity And Inclusion. Dr Murray will provide consultation and if patient is difficult, patient can be transferred in the future ) Counseled pt/family regarding: lab results, diagnosis, need for follow-up, rad results - Departure Departure Disposition: Observation ([facility] to the ICU) Clinical Impression: Unresponsive state, Acute respiratory acidosis, Respiratory distress Overdose Qualifiers: Encounter type: initial encounter Injury intent: accidental or unintentional Qualified Code(s): T50.901A - Poisoning by unspecified drugs, medicaments and biological substances, accidental (unintentional), initial encounter Condition: Serious Critical Care Time: Yes Critical Care Time(excluding separately billable procedures): Critical 30-74 mins Referrals: DOCTOR,NO FAMILY [Primary Care Provider] -
[2019-03-01] MEDS ORDERED: Sodium Chloride 0.9% 1000 ML 1,000 ML ONE ×3 (04:22→08:09)
[2019-03-01 04:34] LABS: Absolute Neutrophil Ct (ANC) 5.77 (1.4-6.9); BASOPHIL % 0.2 % (0.0-0.4); Basophil (Absolute #) 0.02 (0-0.4); Eosinophil % 1.4 % (0.00-5.0); Eosinophil (Absolute #) 0.12 (0-0.5); Hematocrit 40.5 % (35-47); Hemoglobin 14.1 gm/dl (12.0-16.0); Lymphocyte (Absolute #) 2.06 (1.0-4.6); Lymphocytes % 24.3 % (24.0-44.0); Mean Cell Volume 95.3 fl (78-100); Mean Corpuscular Hemoglobin 33.2 pg (26-32); Mean Corpuscular Hgb Concent. 34.8 g/dl (32-36); Mean Platelet Volume 9.6 fl (6-9.5); Monocytes % 5.9 % (0.0-12.0); Neutrophil % 68.2 % (36.0-66.0); Platelet Count 203 K/mm3 (150-450); Red Blood Count 4.25 M/mm3 (4.1-5.4); Red Cell Distribution Width 11.8 % (11.5-14.0); White Blood Count 8.5 K/mm3 (4.0-10.5)
[2019-03-01 04:37] LABS: PROTIME 11.3 SECONDS (9.95-12.35)
[2019-03-01 04:39] LABS: PTT 25.7 SECONDS (25.3-37.0)
[2019-03-01 04:44] LABS: ACETAMINOPHEN < 10 ug/ml (10-30); ETHYL ALCOHOL < 10 mg/dL (0-10); SALICYLATE < 1.0 mg/dL (2-20)
[2019-03-01 04:49] LABS: ALBUMIN 4.7 g/dL (3.5-5.0); ALKALINE PHOSPHATASE 62 U/L (38-126); ANION GAP 19.2 MEQ/L (5-15); BLOOD UREA NITROGEN 8 mg/dL (7-17); CHLORIDE 107 mmol/L (98-107); Calcium 9.6 mg/dL (8.4-10.2); Carbon Dioxide 22 mmol/L (22-30); Creatinine 1 0.52 mg/dL (0.52-1.04); Glucose 123 mg/dL (74-106); MAGNESIUM 2.1 mg/dL (1.6-2.3); NT PRO BNP 69.7 pg/mL (0-450); Potassium 4.1 mmol/L (3.5-5.1); SGOT/AST 33 U/L (14-36); SGPT/ALT 20 U/L (0-35); SODIUM 144 mmol/L (137-145); Total Protein 8.1 g/dL (6.3-8.2)
[2019-03-01 04:52] LABS: A-aADO2 399; ABG HEMOGLOBIN 12.7; ABG POTASSIUM 3.8 (3.5-5.1); ABG SITE RIGHT BRACHIAL; ARTERIAL BLD GAS O2 SATURATION 99.9 % (95-100); ARTERIAL BLOOD GAS BASE EXCESS -3.3 (-2.0-2.0); ARTERIAL BLOOD GAS FIO2 100 %; ARTERIAL BLOOD GAS PCO2 29 mmHg (35-45); ARTERIAL BLOOD GAS PEEP 5 cmH2O; ARTERIAL BLOOD GAS PO2 278 mmHg (75-100); ARTERIAL BLOOD GAS VENT MODE A/C; ARTERIAL BLOOD GAS VENT RATE 20 /MIN; ARTERIAL BLOOD GAS pH 7.44 (7.35-7.45); CARBOXYHEMOGLOBIN 3.8 % THgb (0.0-6.9); HCO3- 19.7 (22-28); HGB O2 SAT 95.1 g/dF (94-100); Methhemoglobin 1.1 % (1.4-1.5); paO2 pAO1 0.41
[2019-03-01 04:53] LABS: A-aADO2 536; ABG HEMOGLOBIN 14.6; ABG POTASSIUM 4.3 (3.5-5.1); ARTERIAL BLD GAS O2 SATURATION 99.5 % (95-100); ARTERIAL BLOOD GAS FIO2 100 %; ARTERIAL BLOOD GAS PCO2 52 mmHg (35-45); ARTERIAL BLOOD GAS PO2 112 mmHg (75-100); ARTERIAL BLOOD GAS pH 7.28 (7.35-7.45); CARBOXYHEMOGLOBIN 5.1 % THgb (0.0-6.9); HCO3- 24.4 (22-28); HGB O2 SAT 93.4 g/dF (94-100); Lactic Acid 1.1 (0.4-2.0); paO2 pAO1 0.17
[2019-03-01 04:54] LABS: ABG SITE RIGHT BRACHIAL
[2019-03-01] MEDS ORDERED: Ativan 2 MG/1 ML VIAL ONE ×3 (04:58→07:48)
[2019-03-01 05:52] LABS: Appearance CLEAR (CLEAR); Bilirubin NEGATIVE (NEGATIVE); Blood NEGATIVE Ery/ul (0-5); Glucose NEGATIVE (NEGATIVE); Ketones SMALL (NEGATIVE); Leukocyte Esterase NEGATIVE (NEGATIVE); Mucus SLIGHT /HPF (NEGATIVE); Nitrite NEGATIVE (NEGATIVE); Protein,Urine Dip NEGATIVE (Negative); Specific Gravity 1.011 (1.005-1.025); Urobilinogen NEGATIVE mg/dL (0-1); WBC 0-2 /HPF (0-5)
[2019-03-01 06:04] LABS: Amphetamine,Urine NEGATIVE (NEGATIVE); Barbiturate,Urine NEGATIVE (NEGATIVE); Benzodiazepine,Urine NEGATIVE (NEGATIVE); Cocaine,Urine NEGATIVE (NEGATIVE); Methadone,Urine NEGATIVE (NEGATIVE); Opiate,Urine NEGATIVE (NEGATIVE); PCP,Urine NEGATIVE (NEGATIVE); THC,Urine NEGATIVE (NEGATIVE)
--- NOTE | 2019-03-01 08:01 | ERPHSYRPT ---
- History of Present Illness Time Seen by Provider: 03/01/19 03:45 Source: patient, family, old records Exam Limitations: no limitations, clinical condition, other (intubated and sedated) Patient Subjective Stated Complaint: ambulance brought pt to er. Pt is "drunk" , unresponsive and lethargic. Pt's father called the ambulance, stated, "he found her on the couch out of it, had been there 2 hours. She'd been drinking and some people dropped her off like that at home". Triage Nursing Assessment: Ambulance brought pt into ER, pt lethargic and unresponsive with snoring respirations. Pt had lots of oral secretions that she was unable to get up. Lungs clear. ER decided to intibate, 7.0 cm tube at lip. Pt suctioned multiple times. Lungs clear, heart tones reg, abd soft with active bs x4 quad. Another IV placed and f/c placed. Physician History: RECEIVED S/O FROM [facility]. PT PRESENTED "INTOXICATED AND SOMNOLENT." ? GHB USE. PT HAD SONOROUS RESPIRATIONS AND WAS EMERGENTLY INTUBATED FOR AIRWAY PROTECTION. CT HEAD IS NAD WAS ACCEPTED BY [facility] WITH [facility] CONSULT FOR VENT MANAGEMENT. HOWEVER, [facility] NOW REFUSING ADMISSION 2/2 NO PHYSICAL PULM IN HOUSE TO PHYSICALLY MANAGE VENT AND PT ALSO REQUIRES PSYCH CONSULT PER HOSPITAL POLICY. HE REQUESTS PT BE TRANSFERRED. I'VE DW FAMILY, THEY ARE IN AGREEMENT FOR TRANSFER TO [facility]. Allergies/Adverse Reactions: No Known Drug Allergies Allergy (Verified 12/22/17 10:30) Home Medications: No Reportable Medications [No Reported Medications] 03/01/19 [History] Hx Tetanus, Diphtheria Vaccination/Date Given: Yes Hx Influenza Vaccination/Date Given: No Hx Pneumococcal Vaccination/Date Given: No Immunizations Up to Date: No (unknown) - Review of Systems Constitutional: No Symptoms, No Fever, No Chills, No Fatigue, No Lethargy, No Malaise, No Night Sweats, No Weakness, No Weight Loss Eyes: No Symptoms, No Discharge, No Eye Pain, No Eye Redness, No Itchy, No Photophobia, No Tearing, No Vision Changes, No Double Vision, No Foreign Body Sensation Ears, Nose, & Throat: No Symptoms, No Ear Pain, No Ear Discharge, No Hearing Changes, No Tinnitus, No Nose Congestion, No Nose Discharge, No Epistaxis, No Mouth Pain, No Mouth Swelling, No Throat Pain, No Throat Swelling, No Hoarse, No Painful Swallowing, No Stridor Respiratory: No Symptoms, No Cough, No Cyanosis, No Dyspnea, No Dyspnea on Exertion (FUENTES), No Stridor, No Wheezing Cardiac: No Symptoms, No Chest Pain, No Edema, No Palpitations, No Syncope, No Orthopnea Abdominal/Gastrointestinal: No Symptoms, No Abdominal Pain, No Nausea, No Vomiting, No Diarrhea, No Constipation, No Hematemesis, No Hematochezia, No Melena, No Dysphagia, No Appetite Changes Genitourinary Symptoms: No Symptoms, No Dysuria, No Frequency, No Hematuria, No Hesitancy, No Incontinence, No Urgency, No Urinary Retention, No Flank Pain, No Menorrhagia, No , No Vaginal Bleeding, No Vaginal Discharge Musculoskeletal: No Symptoms, No Arthralgias, No Back Pain, No Neck Pain, No Deformity, No Fall, No Injury, No Joint Redness, No Joint Pain, No Joint Swelling, No Myalgias Skin: No Symptoms, No Cellulitis, No Decubiti, No Induration, No Pruritis, No Rash, No Skin Lesions, No Dryness Neurological: No Symptoms, Lethargy, No Dizziness, No Focal Weakness, No Gait Changes, No Headache, No Irritability, No Paralysis, No Parasthesia, No Seizure , No Sensory Changes, No Speech Changes, No Tics, No Tremors, No Vertigo Psychological: No Symptoms, No Alcohol Abuse, No Drug Abuse, No Anxiety, No Depression, No Suicidal Ideations, No Homicidal Ideations, No Emotional Lability , No Hallucinations, No Memory Loss, No Mood Changes Endocrine: No Symptoms, No Polyuria, No Polydipsia, No Hair Changes, No Cold Intolerance, No Excessive Sweating, No Goiter Hematologic/Lymphatic: No Symptoms, No Anemia, No Blood Clots, No Easy Bleeding , No Gum Bleeding, No Easy Bruising, No Adenopathy Immunological/Allergic: No Symptoms All Other Systems: Reviewed and Negative - Past Medical History Pertinent Past Medical History: Yes Neurological History: No Pertinent History ENT History: No Pertinent History Cardiac History: No Pertinent History Respiratory History: No Pertinent History Endocrine Medical History: No Pertinent History Musculoskeletal History: Fibromyalgia, Other GI Medical History: No Pertinent History History: No Pertinent History Psycho-Social History: Anxiety, Depression, Panic Disorder Female Reproductive Disorders: No Pertinent History Other Medical History: domitila spotted mountain fever. lyme disease - Past Surgical History Past Surgical History: Yes Neuro Surgical History: No Pertinent History Cardiac: No Pertinent History Respiratory: No Pertinent History Gastrointestinal: No Pertinent History Genitourinary: No Pertinent History Musculoskeletal: No Pertinent History Female Surgical History: Tubal Ligation Other Surgical History: port placed and removed, tonsils - Social History Smoking Status: Current every day smoker How long have you smoked: 23 Exposure to second hand smoke: Yes Drug Use: none Patient Lives Alone: No - Female History Hx Last Menstrual Period: unknown Hx Now: No - Nursing Vital Signs Nursing Vital Signs: Initial Vital Signs O2 Sat by Pulse Oximetry 100 03/01/19 03:49 Pain Scale Pain Intensity 0 - Physical Exam General Appearance: no apparent distress, alert, other (INTUBATED SEDATED, PULLING AT TUBE MOVING ALL 4'S) Eye Exam: PERRL/EOMI, eyes nml inspection, other (fundi normal eleno), No scleral icterus, No pale conjunctivae, No photophobia, No EOM palsy/anisocoria Ears, Nose, Throat Exam: normal ENT inspection, TMs normal, pharynx normal, TM abnormal (L), other (uvula midline, floor of mouth soft), No moist mucous membranes, No dry mucous membranes, No TM abnormal (R), No pharyngeal erythema, No tonsillar exudate Neck Exam: normal inspection, non-tender, supple, full range of motion, No meningismus, No mass, No Brudzinski, No Kernig's, No carotid bruit, No JVD, No limited range of motion, No lymphadenopathy, No midline tenderness, No thyromegaly Respiratory Exam: normal breath sounds, lungs clear, airway intact, No chest tenderness, No respiratory distress, No diminished breath sounds, No accessory muscle use, No prolonged expirations, No crackles/rales, No rhonchi, No wheezing , No stridor, No pleural rub Cardiovascular Exam: regular rate/rhythm, normal heart sounds, normal peripheral pulses, capillary refill <2 sec, No murmur, No friction rub, No gallop, No tachycardia, No bradycardia, No irregular, No capillary refill 2-3 sec, No capillary refill >3 sec, No edema, No pulse deficit Gastrointestinal/Abdomen Exam: soft, normal bowel sounds, No tenderness, No distention, No mass, No guarding, No ecchymosis, No pulsatile mass, No rebound, No hernia, No hepatomegaly, No organomegaly, No splenomegaly, No bruit Pelvic Exam: normal external exam Rectal Exam: deferred Back Exam: normal inspection, normal range of motion, other (neg slr eleno, no sacral anesthesia, dtr 2/4 eleno patella), No CVA tenderness, No vertebral tenderness, No rash, No decreased range of motion, No muscle spasm, No point tenderness Extremity Exam: normal inspection, normal range of motion, pelvis stable, No amputations, No contusions, No calf tenderness, No deformities, No lacerations, No parasthesia, No paralysis, No inflammation, No joint swelling, No limited range of motion, No pedal edema, No swelling, No tenderness Neurologic Exam: other (INTUBATED SEDATED MOVES ALL 4'S), No motor deficits, No sensory deficit, No disoriented, No confusion, No agitation, No uncooperative, No intoxicated appearance, No depressed mood/affect, No motor weakness, No facial droop, No slurred speech, No aphasia, No dysarthria, No abnormal gait, No abnormal cerebellar tests, No abnormal dean of women II-XII, No EOM palsy Skin Exam: normal color, warm, dry, No rash, No petechiae, No jaundice, No abrasion, No cyanosis, No diaphoresis, No decubitus, No embolic lesions, No ecchymosis, No jaundice, No laceration, No mottled, No pale Lymphatic Exam: No adenopathy SpO2 Interpretation: normal SpO2: 100 O2 Delivery: Room Air - Course Nursing assessment & vital signs reviewed: Yes Ordered Tests: Active Orders 24 hr Category Date Time Status CO2 Monitoring STAT Care 03/01/19 04:02 Active Reconditioner STAT Care 03/01/19 03:49 Active EKG-ER Only STAT Care 03/01/19 04:02 Active Acosta [Catheter-[place] Acosta] STAT Care 03/01/19 04:04 Active IV Insertion STAT Care 03/01/19 04:02 Active NPO (ED) STAT Care 03/01/19 03:49 Active Pulse Oximetry (ED) STAT Care 03/01/19 03:49 Active CHEST 1 VIEW (PORTABLE) Stat Exams 03/01/19 04:14 Taken HEAD WITHOUT CONTRAST [CT] Stat Exams 03/01/19 06:23 Taken ACETAMINOPHEN Stat Lab 03/01/19 04:25 Completed ARTERIAL BLOOD GASES Stat Lab 03/01/19 04:03 Completed ARTERIAL BLOOD GASES Stat Lab 03/01/19 04:45 Completed CBC W DIFF Stat Lab 03/01/19 04:25 Completed CMP Stat Lab 03/01/19 04:25 Completed CULTURE,URINE Stat Lab 03/01/19 04:35 Received ETHYL ALCOHOL Stat Lab 03/01/19 04:25 Completed Lactic Acid Stat Lab 03/01/19 04:03 Completed MAGNESIUM Stat Lab 03/01/19 04:25 Completed NT PRO BNP Stat Lab 03/01/19 04:25 Completed PROTIME WITH INR Stat Lab 03/01/19 04:25 Completed PTT Stat Lab 03/01/19 04:25 Completed SALICYLATE Stat Lab 03/01/19 04:25 Completed TROPONIN Q3H Lab 03/01/19 04:25 Completed TROPONIN Q3H Lab 03/01/19 07:15 Ordered TROPONIN Q3H Lab 03/01/19 10:15 Ordered TROPONIN Q3H Lab 03/01/19 13:15 Ordered TROPONIN Q3H Lab 03/01/19 16:15 Ordered UA W/RFX UR CULTURE Stat Lab 03/01/19 04:35 Completed Urine Triage Profile Stat Lab 03/01/19 04:35 Completed Intubate Patient STAT RT 03/01/19 04:00 Active Intubation [Ventilator Management] STAT RT 03/01/19 04:00 Active Standby STAT RT 03/01/19 07:47 Active Vent Settings [Ventilator Management] Q4H RT 03/01/19 07:45 Active Ventilator Management STAT RT 03/01/19 07:42 Active Transfer Order Routine Transfer 03/01/19 Ordered Medication Summary Discontinued Medications Generic Name Dose Route Start Last Admin Trade Name Freq PRN Reason Stop Dose Admin Etomidate 20 mg 03/01/19 03:49 03/01/19 03:54 Amidate 20 Mg/10 Ml IV 03/01/19 03:50 20 mg STAT ONE Administration Famotidine 20 mg 03/01/19 04:02 03/01/19 05:02 Pepcid 20 Mg Vial IV 03/01/19 04:03 20 mg STAT ONE Administration Famotidine Confirm 03/01/19 04:58 Pepcid 20 Mg Vial Administered 03/01/19 04:59 Dose 20 mg IV .STK-MED ONE Sodium Chloride 1,000 mls @ 999 mls/hr 03/01/19 03:49 03/01/19 04:25 Sodium Chloride 0.9% 1000 Ml IV 03/01/19 04:49 999 mls/hr .Q1H1M STA Administration Sodium Chloride 1,000 mls @ 999 mls/hr 03/01/19 04:02 Sodium Chloride 0.9% 1000 Ml IV 03/01/19 05:02 .Q1H1M STA Sodium Chloride Confirm 03/01/19 04:22 Sodium Chloride 0.9% 1000 Ml Administered 03/01/19 04:23 Dose 1,000 mls @ ud .ROUTE .STK-MED ONE Sodium Chloride Confirm 03/01/19 04:58 Sodium Chloride 0.9% 1000 Ml Administered 03/01/19 04:59 Dose 1,000 mls @ ud .ROUTE .STK-MED ONE Lorazepam 2 mg 03/01/19 04:02 03/01/19 05:01 Ativan 2 Mg/1 Ml Vial IV 03/01/19 04:03 2 mg STAT ONE Administration Lorazepam Confirm 03/01/19 04:58 Ativan 2 Mg/1 Ml Vial Administered 03/01/19 04:59 Dose 2 mg .ROUTE .STK-MED ONE Lorazepam 2 mg 03/01/19 06:35 03/01/19 06:43 Ativan 2 Mg/1 Ml Vial IV 03/01/19 06:36 2 mg STAT ONE Administration Lorazepam Confirm 03/01/19 06:36 Ativan 2 Mg/1 Ml Vial Administered 03/01/19 06:37 Dose 2 mg .ROUTE .STK-MED ONE Lorazepam Confirm 03/01/19 07:48 Ativan 2 Mg/1 Ml Vial Administered 03/01/19 07:49 Dose 2 mg .ROUTE .STK-MED ONE Rocuronium [place] 70 mg 03/01/19 03:49 03/01/19 03:56 Zemuron 100 Mg/10 Ml IV 03/01/19 03:50 70 mg STAT ONE Administration Lab/Rad Data: Laboratory Result Diagrams 03/01/19 04:25 03/01/19 04:25 Laboratory Results 03/01/19 03/01/19 03/01/19 Range/Units 04:45 04:35 04:35 WBC (4.0-10.5) K/mm3 RBC (4.1-5.4) M/mm3 Hgb (12.0-16.0) gm/dl Hct (35-47) % MCV (78-100) fl MCH (26-32) pg MCHC (32-36) g/dl RDW (11.5-14.0) % Plt Count (150-450) K/mm3 MPV (6-9.5) fl Gran % (36.0-66.0) % Eos # (Auto) (0-0.5) Absolute Lymphs (auto) (1.0-4.6) Absolute Monos (auto) (0.0-1.3) Lymphocytes % (24.0-44.0) % Monocytes % (0.0-12.0) % Eosinophils % (0.00-5.0) % Basophils % (0.0-0.4) % Absolute Granulocytes (1.4-6.9) Basophils # (0-0.4) PT (9.95-12.35) SECONDS INR (0.8-3.0) APTT (25.3-37.0) SECONDS Puncture Site RIGHT BRACHIAL pCO2 29 L (35-45) mmHg pO2 278 H* (75-100) mmHg Base Excess -3.3 L (-2.0-2.0) O2 Saturation 95.1 (94-100) g/dF ABG pH 7.44 (7.35-7.45) ABG HCO3 19.7 L (22-28) ABG O2 Sat (Measured) 99.9 (95-100) % Yamil Test NOT APPLICABLE A-a Gradient 399 a/A Ratio 0.41 Hemoglobin 12.7 Carboxyhemoglobin 3.8 (0.0-6.9) % THgb Methemoglobin 1.1 L (1.4-1.5) % Potassium 3.8 (3.5-5.1) Temperature 37.0 C POC O2 Flow Rate 100 % Vent Mode A/C Vent Rate 20 /MIN Tidal Volume 550 cc PEEP 5 cmH2O Sodium (137-145) mmol/L Chloride (98-107) mmol/L Carbon Dioxide (22-30) mmol/L Anion Gap (5-15) MEQ/L BUN (7-17) mg/dL Creatinine (0.52-1.04) mg/dL Estimated GFR ML/MIN Glucose (74-106) mg/dL Lactic Acid (0.4-2.0) Calcium (8.4-10.2) mg/dL Magnesium (1.6-2.3) mg/dL Total Bilirubin (0.2-1.3) mg/dL AST (14-36) U/L ALT (0-35) U/L Alkaline Phosphatase (38-126) U/L Troponin I (0.000-0.034) ng/mL NT-Pro-B Natriuret Pep (0-450) pg/mL Serum Total Protein (6.3-8.2) g/dL Albumin (3.5-5.0) g/dL Urine Color STRAW (YELLOW) Urine Appearance CLEAR (CLEAR) Urine pH 5.0 (5-6) Ur Specific [place] 1.011 (1.005-1.025) Urine Protein NEGATIVE (Negative) Urine Ketones SMALL (NEGATIVE) Urine Blood NEGATIVE (0-5) [place]/ul Urine Nitrite NEGATIVE (NEGATIVE) Urine Bilirubin NEGATIVE (NEGATIVE) Urine Urobilinogen NEGATIVE (0-1) mg/dL Ur Leukocyte Esterase NEGATIVE (NEGATIVE) Urine WBC (Auto) 0-2 (0-5) /HPF Urine RBC (Auto) NONE (0-2) /HPF U Epithel Cells (Auto) NONE (FEW) /HPF Urine Bacteria (Auto) NONE (NEGATIVE) /HPF Urine Mucus (Auto) SLIGHT (NEGATIVE) /HPF Urine Culture Reflexed ORDERED SEPARATELY (NO) Urine Glucose NEGATIVE (NEGATIVE) mg/dL Salicylates (2-20) mg/dL Urine Opiates Level NEGATIVE (NEGATIVE) Ur Methadone NEGATIVE (NEGATIVE) Acetaminophen (10-30) ug/ml Urine Barbiturates NEGATIVE (NEGATIVE) Ur Phencyclidine (PCP) NEGATIVE (NEGATIVE) Urine Amphetamine NEGATIVE (NEGATIVE) U Benzodiazepine Level NEGATIVE (NEGATIVE) Urine Cocaine NEGATIVE (NEGATIVE) Urine Marijuana (THC) NEGATIVE (NEGATIVE) Ethyl Alcohol (0-10) mg/dL 03/01/19 03/01/19 03/01/19 Range/Units 04:25 04:25 04:25 WBC (4.0-10.5) K/mm3 RBC (4.1-5.4) M/mm3 Hgb (12.0-16.0) gm/dl Hct (35-47) % MCV (78-100) fl MCH (26-32) pg MCHC (32-36) g/dl RDW (11.5-14.0) % Plt Count (150-450) K/mm3 MPV (6-9.5) fl Gran % (36.0-66.0) % Eos # (Auto) (0-0.5) Absolute Lymphs (auto) (1.0-4.6) Absolute Monos (auto) (0.0-1.3) Lymphocytes % (24.0-44.0) % Monocytes % (0.0-12.0) % Eosinophils % (0.00-5.0) % Basophils % (0.0-0.4) % Absolute Granulocytes (1.4-6.9) Basophils # (0-0.4) PT 11.3 (9.95-12.35) SECONDS INR 1.00 (0.8-3.0) APTT 25.7 (25.3-37.0) SECONDS Puncture Site pCO2 (35-45) mmHg pO2 (75-100) mmHg Base Excess (-2.0-2.0) O2 Saturation (94-100) g/dF ABG pH (7.35-7.45) ABG HCO3 (22-28) ABG O2 Sat (Measured) (95-100) % Yamil Test A-a Gradient a/A Ratio Hemoglobin Carboxyhemoglobin (0.0-6.9) % THgb Methemoglobin (1.4-1.5) % Potassium (3.5-5.1) Temperature C POC O2 Flow Rate % Vent Mode Vent Rate /MIN Tidal Volume cc PEEP cmH2O Sodium (137-145) mmol/L Chloride (98-107) mmol/L Carbon Dioxide (22-30) mmol/L Anion Gap (5-15) MEQ/L BUN (7-17) mg/dL Creatinine (0.52-1.04) mg/dL Estimated GFR ML/MIN Glucose (74-106) mg/dL Lactic Acid (0.4-2.0) Calcium (8.4-10.2) mg/dL Magnesium (1.6-2.3) mg/dL Total Bilirubin (0.2-1.3) mg/dL AST (14-36) U/L ALT (0-35) U/L Alkaline Phosphatase (38-126) U/L Troponin I < 0.012 (0.000-0.034) ng/mL NT-Pro-B Natriuret Pep (0-450) pg/mL Serum Total Protein (6.3-8.2) g/dL Albumin (3.5-5.0) g/dL Urine Color (YELLOW) Urine Appearance (CLEAR) Urine pH (5-6) Ur Specific [place] (1.005-1.025) Urine Protein (Negative) Urine Ketones (NEGATIVE) Urine Blood (0-5) [place]/ul Urine Nitrite (NEGATIVE) Urine Bilirubin (NEGATIVE) Urine Urobilinogen (0-1) mg/dL Ur Leukocyte Esterase (NEGATIVE) Urine WBC (Auto) (0-5) /HPF Urine RBC (Auto) (0-2) /HPF U Epithel Cells (Auto) (FEW) /HPF Urine Bacteria (Auto) (NEGATIVE) /HPF Urine Mucus (Auto) (NEGATIVE) /HPF Urine Culture Reflexed (NO) Urine Glucose (NEGATIVE) mg/dL Salicylates < 1.0 L (2-20) mg/dL Urine Opiates Level (NEGATIVE) Ur Methadone (NEGATIVE) Acetaminophen < 10 L (10-30) ug/ml Urine Barbiturates (NEGATIVE) Ur Phencyclidine (PCP) (NEGATIVE) Urine Amphetamine (NEGATIVE) U Benzodiazepine Level (NEGATIVE) Urine Cocaine (NEGATIVE) Urine Marijuana (THC) (NEGATIVE) Ethyl Alcohol < 10 (0-10) mg/dL 03/01/19 03/01/19 03/01/19 Range/Units 04:25 04:25 04:03 WBC 8.5 (4.0-10.5) K/mm3 RBC 4.25 (4.1-5.4) M/mm3 Hgb 14.1 (12.0-16.0) gm/dl Hct 40.5 (35-47) % MCV 95.3 (78-100) fl MCH 33.2 H (26-32) pg MCHC 34.8 (32-36) g/dl RDW 11.8 (11.5-14.0) % Plt Count 203 (150-450) K/mm3 MPV 9.6 H (6-9.5) fl Gran % 68.2 H (36.0-66.0) % Eos # (Auto) 0.12 (0-0.5) Absolute Lymphs (auto) 2.06 (1.0-4.6) Absolute Monos (auto) 0.50 (0.0-1.3) Lymphocytes % 24.3 (24.0-44.0) % Monocytes % 5.9 (0.0-12.0) % Eosinophils % 1.4 (0.00-5.0) % Basophils % 0.2 (0.0-0.4) % Absolute Granulocytes 5.77 (1.4-6.9) Basophils # 0.02 (0-0.4) PT (9.95-12.35) SECONDS INR (0.8-3.0) APTT (25.3-37.0) SECONDS Puncture Site RIGHT BRACHIAL pCO2 52 H (35-45) mmHg pO2 112 H (75-100) mmHg Base Excess -3.0 L (-2.0-2.0) O2 Saturation 93.4 L (94-100) g/dF ABG pH 7.28 L (7.35-7.45) ABG HCO3 24.4 (22-28) ABG O2 Sat (Measured) 99.5 (95-100) % Yamil Test NOT APPLICABLE A-a Gradient 536 a/A Ratio 0.17 Hemoglobin 14.6 Carboxyhemoglobin 5.1 (0.0-6.9) % THgb Methemoglobin 1.0 L (1.4-1.5) % Potassium 4.1 4.3 (3.5-5.1) Temperature 37.0 C POC O2 Flow Rate 100 % Vent Mode Vent Rate /MIN Tidal Volume cc PEEP cmH2O Sodium 144 (137-145) mmol/L Chloride 107 (98-107) mmol/L Carbon Dioxide 22 (22-30) mmol/L Anion Gap 19.2 H (5-15) MEQ/L BUN 8 (7-17) mg/dL Creatinine 0.52 (0.52-1.04) mg/dL Estimated GFR > 60.0 ML/MIN Glucose 123 H (74-106) mg/dL Lactic Acid 1.1 (0.4-2.0) Calcium 9.6 (8.4-10.2) mg/dL Magnesium 2.1 (1.6-2.3) mg/dL Total Bilirubin 0.70 (0.2-1.3) mg/dL AST 33 (14-36) U/L ALT 20 (0-35) U/L Alkaline Phosphatase 62 (38-126) U/L Troponin I (0.000-0.034) ng/mL NT-Pro-B Natriuret Pep 69.7 (0-450) pg/mL Serum Total Protein 8.1 (6.3-8.2) g/dL Albumin 4.7 (3.5-5.0) g/dL Urine Color (YELLOW) Urine Appearance (CLEAR) Urine pH (5-6) Ur Specific [place] (1.005-1.025) Urine Protein (Negative) Urine Ketones (NEGATIVE) Urine Blood (0-5) [place]/ul Urine Nitrite (NEGATIVE) Urine Bilirubin (NEGATIVE) Urine Urobilinogen (0-1) mg/dL Ur Leukocyte Esterase (NEGATIVE) Urine WBC (Auto) (0-5) /HPF Urine RBC (Auto) (0-2) /HPF U Epithel Cells (Auto) (FEW) /HPF Urine Bacteria (Auto) (NEGATIVE) /HPF Urine Mucus (Auto) (NEGATIVE) /HPF Urine Culture Reflexed (NO) Urine Glucose (NEGATIVE) mg/dL Salicylates (2-20) mg/dL Urine Opiates Level (NEGATIVE) Ur Methadone (NEGATIVE) Acetaminophen (10-30) ug/ml Urine Barbiturates (NEGATIVE) Ur Phencyclidine (PCP) (NEGATIVE) Urine Amphetamine (NEGATIVE) U Benzodiazepine Level (NEGATIVE) Urine Cocaine (NEGATIVE) Urine Marijuana (THC) (NEGATIVE) Ethyl Alcohol (0-10) mg/dL - Progress Progress: improved Progress Note: 03/01/19 08:07 DR. STALLINGS NOW REFUSING ADMISSION. [facility]A SYKES ER ACCEPTS ADMIT CARE TRANSFERRED COBRA EMTALA COMPLETE CT HEAD CXR EKG, LABS UNREMARKABLE NO TOXINS ON BOARD ETOH NEG WILL SEDATE WITH PROPOFOL SINCE PT PULLING ON TUBE WILL BOLUS PRN WITH ATIVAN OR VERSED SARIKA MOM , ALL QUESTIONS ANSWERED TO HER SATISFACTION. APOLOGISED TO MOM FOR DISPOSITION CONFUSION Counseled pt/family regarding: drug and/or alcohol abuse, lab results, diagnosis , need for follow-up, rad results, smoking cessation - Departure Departure Disposition: Transfer Clinical Impression: Unresponsive state, Acute respiratory acidosis, Respiratory distress Overdose Qualifiers: Encounter type: initial encounter Injury intent: accidental or unintentional Qualified Code(s): T50.901A - Poisoning by unspecified drugs, medicaments and biological substances, accidental (unintentional), initial encounter Condition: Serious Critical Care Time: No Critical Care Time(excluding separately billable procedures): Critical 30-74 mins Referrals: DOCTOR,NO FAMILY [Primary Care Provider] -
[2019-03-01] MEDS ORDERED: Propofol 1000 mg/100 ml Bottle 100 ML IV PRN ×2 (08:05→09:49)
--- NOTE | 2019-03-01 08:53 | XRAY ---
Indication: Patient unresponsive. Multiple contiguous axial images obtained through the head without contrast. Comparison: July 21, 2015. Again normal appearing brain parenchyma, ventricles, and bony calvarium. There is now near-complete opacification of the nasopharynx with fluid leveling and lesser degree both ethmoid sinuses. Remaining visualized paranasal sinuses and mastoid air cells are clear. Impression: 1. Opacification of the nasopharynx and ethmoid sinuses with fluid leveling. 2. Remaining CT head without contrast exam is negative. CT DI 61.49
--- NOTE | 2019-03-01 09:14 | XRAY ---
Indication: Unresponsive. Intubation. Comparison: July 20, 2018. Portable chest again demonstrates normal heart, lungs, and bony thorax with new endotracheal tube tip 10 cm above the dano.
[2019-03-01] MEDS: ENOXAPARIN SODIUM SQ SCH (10:12)
[2019-03-01] MEDS: Sodium Chloride 0.9% 1000 ML 1,000 ML IV SCH (10:12)
[2019-03-01] MEDS: Pepcid 20 MG VIAL IV SCH ×2 (10:12→22:10)
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
--- NOTE | 2019-03-01 15:32 | CONS ---
HISTORY: Miss Sweeney is a 38 year old woman who was brought in unconscious to [facility] ER at 0345 hours. According to report by ER physician, the patient was drinking and also doing possible illicit substances. She was brought by some men to the patient's father's house. He thought she was drunk and decided to bring her to the ER. She was intoxicated along with somnolence. There was also questionable history of GXB use. The patient was noted to have loud snoring respirations. She was initially intubated by the ER physician. I was called and was asked to manage the ventilator. However subsequently the patient did well "woke up" and was extubated. At the time of my evaluation she is awake, alert, confused. She is on room air maintaining good oxygen saturation. PAST MEDICAL HISTORY: Positive for anxiety, depression and fibromyalgia. PAST SURGICAL HISTORY: Positive for tubal ligation. She also had tonsillectomy. PERSONAL/SOCIAL HISTORY: She smokes. Illicit substance abuse as above. MEDICATIONS: Reviewed. ALLERGIES: Noted. PHYSICAL EXAMINATION: This is a middle aged woman who appears confused but comfortable, not in any distress, able to carry on good conversation with family. Vital signs noted. HEENT: Normocephalic. Oral exam is limited. NECK: Supple. CVS: Heart sounds normal, regular, rhythmic. RESPIRATORY: Shows diminished breath sounds but clear to auscultation. ABDOMEN: Soft. No edema is noted. LAB DATA AND TESTS: Troponins were negative. Head CT showed evidence of sinusitis. Chest x-ray showed clear chest. ASSESSMENT: This is a 38 year old woman admitted with: 1) Altered mental status likely from illicit substance abuse who has been successfully extubated. 2) Confusion likely from illicit substance abuse. 3) Sinusitis. 4) History of alcohol abuse. RECOMMENDATIONS: 1) The patient is stable from pulmonary standpoint. 2) Treatment of sinusitis per Dr. Tariq. 3) Will benefit from psychiatric evaluation. I will be available if needed.
[2019-03-02] MEDS: Sodium Chloride 0.9% 1000 ML 1,000 ML IV SCH ×2 (00:36→11:40)
[2019-03-02 06:47] LABS: Hematocrit 36.1 % (35-47); Hemoglobin 12.4 gm/dl (12.0-16.0); Mean Cell Volume 96.8 fl (78-100); Mean Corpuscular Hemoglobin 33.2 pg (26-32); Mean Corpuscular Hgb Concent. 34.3 g/dl (32-36); Mean Platelet Volume 10.4 fl (6-9.5); Platelet Count 176 K/mm3 (150-450); Red Blood Count 3.73 M/mm3 (4.1-5.4); Red Cell Distribution Width 11.7 % (11.5-14.0); White Blood Count 12.4 K/mm3 (4.0-10.5)
[2019-03-02 07:01] LABS: ALBUMIN 3.7 g/dL (3.5-5.0); ALKALINE PHOSPHATASE 52 U/L (38-126); ANION GAP 10.8 MEQ/L (5-15); BLOOD UREA NITROGEN 2 mg/dL (7-17); CHLORIDE 109 mmol/L (98-107); Calcium 9.1 mg/dL (8.4-10.2); Carbon Dioxide 25 mmol/L (22-30); Creatinine 1 0.51 mg/dL (0.52-1.04); Glucose 120 mg/dL (74-106); Potassium 3.3 mmol/L (3.5-5.1); SGOT/AST 24 U/L (14-36); SGPT/ALT 16 U/L (0-35); SODIUM 141 mmol/L (137-145); Total Protein 6.8 g/dL (6.3-8.2)
[2019-03-02] MEDS: Pepcid 20 MG VIAL IV SCH (10:25)
[2019-03-02] MEDS: ENOXAPARIN SODIUM SQ SCH (10:33)
[2019-03-02] MEDS ORDERED: Nicoderm CQ 21 MG TOP SCH (11:15)
[2019-03-02 16:13] VITALS: PULSE 85
--- NOTE | 2019-03-02 18:34 | PCM.NOTE ---
Date and Time: 03/02/191812 Subjective Assessment: Patient seen and examined this am. Patient reports that she does not remember what happened prior to being in the hospital. Patient reports that she was at her dads house and then the next thing she remembered was being at the hospital. Patient cant remember taking any drugs. She was unsure if there were other people at her dads house. Patient reports hx of using [place] for back pain and Meth. Patient reports that she would like to get on Suboxone. Patient reports that she just got out of detention 3 days ago. She reports having a hx of anxiety and that she was fired from [facility] when she was a patient and she states it was related to getting Xanax refilled. Patient reports hx of lyme disease in the past and was wondering if her symptoms were related to that. Patient reports thoughts of 'wanting to be gone'. Patient reports blacking out episodes that she has had since she was younger. She denies ever injuring herself during these blackouts. Patient has no other reported concerns. - Review of Systems Constitutional: No Symptoms Eyes: Other (Blurry vision) Ears, Nose, & Throat: No Nose Congestion, No Sinus Drainage, No Throat Pain Respiratory: No Cough, No Short Of Breath Cardiac: Other (Patient reports hx of "blacking out"), No Chest Pain, No Edema Abdominal/Gastrointestinal: No Abdominal Pain, No Nausea, No Vomiting, No Diarrhea, No Constipation Genitourinary Symptoms: Other (Patient requested for STD testing), No Dysuria, No Frequency Musculoskeletal: Back Pain Neurological: Headache, Other (numbness R hand) Psychological: Alcohol Abuse, Drug Abuse, Anxiety, Depression, Suicidal Ideations, Memory Loss Immunological/Allergic: Other (possible STDs exposure) Objective Exam General Appearance: no apparent distress Neurologic Exam: alert, other (Patient was difficult to elicit hx from. She denies any memory of the events leading up to her being intubated in the ER. Flat affect depressed mood. Patient has told staff different details pertaining to her hx.) Skin Exam: normal color, warm, dry Eye Exam: eyes nml inspection Ears, Nose, Throat Exam: moist mucous membranes Neck Exam: normal inspection Respiratory Exam: airway intact, No respiratory distress Cardiovascular Exam: regular rate/rhythm Gastrointestinal/Abdomen Exam: No distention Extremity Exam: normal inspection (Patient has some small scabs on lower extremities), No pedal edema, No swelling OBJECTIVE DATA Vital Signs: Vital Signs - 24 hr Temp Pulse Resp BP Pulse Ox 03/02/19 16:00 98.1 F 85 18 124/89 99 03/02/19 12:00 98.5 F 92 H 17 115/87 97 03/02/19 08:00 91 H 03/02/19 07:54 98.6 F 97 H 18 117/79 98 03/02/19 03:42 95 H 03/02/19 03:41 98.5 F 95 H 18 120/82 97 03/02/19 00:01 106 H 03/02/19 00:00 98.5 F 106 H 20 124/58 98 03/01/19 20:00 98.2 F 109 H 20 131/90 99 Pain Assessment - Last Documented Pain Intensity 0 Pain Scale Used 0-10 Pain Scale Intake and Output: Intake & Output 02/28/19 03/01/19 03/02/19 03/03/19 11:59 11:59 11:59 11:59 Intake Total 4885 480 Output Total 400 4109 [facility] Balance -438 -2134 -7378 Weight 69.173 kg 68.9 kg Lab Results: Lab Results-Last 24 Hours 03/02/19 03/02/19 Range/Units 05:50 05:50 WBC 12.4 H (4.0-10.5) K/mm3 RBC 3.73 L (4.1-5.4) M/mm3 Hgb 12.4 (12.0-16.0) gm/dl Hct 36.1 (35-47) % MCV 96.8 (78-100) fl MCH 33.2 H (26-32) pg MCHC 34.3 (32-36) g/dl RDW 11.7 (11.5-14.0) % Plt Count 176 (150-450) K/mm3 MPV 10.4 H (6-9.5) fl Sodium 141 (137-145) mmol/L Potassium 3.3 L (3.5-5.1) mmol/L Chloride 109 H (98-107) mmol/L Carbon Dioxide 25 (22-30) mmol/L Anion Gap 10.8 (5-15) MEQ/L BUN 2 L (7-17) mg/dL Creatinine 0.51 L (0.52-1.04) mg/dL Estimated GFR > 60.0 ML/MIN Glucose 120 H (74-106) mg/dL Calcium 9.1 (8.4-10.2) mg/dL Total Bilirubin 0.90 (0.2-1.3) mg/dL AST 24 (14-36) U/L ALT 16 (0-35) U/L Alkaline Phosphatase 52 (38-126) U/L Serum Total Protein 6.8 (6.3-8.2) g/dL Albumin 3.7 (3.5-5.0) g/dL Radiology Exams: Radiology Procedures Category Date Time Status CHEST 1 VIEW (PORTABLE) Stat Exams 03/01/19 04:14 Completed HEAD WITHOUT CONTRAST [CT] Stat Exams 03/01/19 06:23 Completed Assessment/Plan (1) Acute respiratory acidosis Current Visit: Yes Status: Acute Assessment & Plan: Patient has been extubated and is sating well on RA. Code(s): E87.2 - ACIDOSIS (2) Overdose Current Visit: Yes Status: Acute Qualifiers: Encounter type: initial encounter Injury intent: accidental or unintentional Assessment & Plan: Although tox screen was neg for drugs that were tested, patient symptoms and presentation were consistent with a possible overdose. Patient is unable to remember the details prior to her intubation in ER. Unsure if patient used drugs intentionally or unintentionally or if they were given to her by someone. I am unable to determine intentional vs accidental. Will insist on inpatient treatment as patient has significant hx of drug use and thinks about dying often. Filled on ED as patient was unwilling to go to inpatient as a transfer and I cant guarantee that she will not attempt to harm herself prior to inpatient treatment. Psych evaluated patient please refer to their note. Code(s): T50.901A - POISONING BY UNSP DRUG/MEDS/BIOL SUBST, ACCIDENTAL, INIT (3) Anxiety disorder due to general medical condition with panic attack Current Visit: No Status: Acute Assessment & Plan: Patient could have underlying anxiety. Will likely benefit being on anxiety medication. Will not start any meds at this time due to recent intubation for resp acidosis Code(s): F41.0 - PANIC DISORDER [EPISODIC PAROXYSMAL ANXIETY]
[2019-03-02 20:03] LABS: Absolute Neutrophil Ct (ANC) 5.59 (1.4-6.9); BASOPHIL % 0.1 % (0.0-0.4); Basophil (Absolute #) 0.01 (0-0.4); Eosinophil % 1.3 % (0.00-5.0); Hematocrit 36.8 % (35-47); Hemoglobin 12.8 gm/dl (12.0-16.0); Lymphocyte (Absolute #) 1.79 (1.0-4.6); Lymphocytes % 22.5 % (24.0-44.0); Mean Cell Volume 96.8 fl (78-100); Mean Corpuscular Hgb Concent. 34.8 g/dl (32-36); Mean Platelet Volume 9.9 fl (6-9.5); Monocyte (Absolute #) 0.45 (0.0-1.3); Monocytes % 5.7 % (0.0-12.0); Neutrophil % 70.4 % (36.0-66.0); Platelet Count 170 K/mm3 (150-450); Red Cell Distribution Width 11.7 % (11.5-14.0); White Blood Count 7.9 K/mm3 (4.0-10.5)
[2019-03-02 20:29] LABS: Mean Corpuscular Hemoglobin 33.6 pg (26-32)
[2019-03-02 20:38] LABS: ANION GAP 11.6 MEQ/L (5-15); CHLORIDE 108 mmol/L (98-107); Calcium 9.6 mg/dL (8.4-10.2); Carbon Dioxide 28 mmol/L (22-30); Creatinine 1 0.52 mg/dL (0.52-1.04); Glucose 108 mg/dL (74-106); Potassium 3.4 mmol/L (3.5-5.1); SODIUM 144 mmol/L (137-145); TSH, 3RD Generation 0.593 mIU/L (0.47-4.68)
[2019-03-02 20:46] LABS: BLOOD UREA NITROGEN < 2 mg/dL (7-17)
[2019-03-02 20:50] VITALS: BP 132/93; O2SAT 98
== END 2019-03-02 21:50 | disposition left against medical advice (07) ==
LOC: ED 03:45 → UNDOADMOB 09:40 → ICU 09:40 → UNDODISOB 03-02 21:50
PROVIDERS: ADMIT Family Medicine; ATTEND Family Medicine
DX: E87.2 Acidosis (principal); T65.91XA Toxic effect of unspecified substance, accidental (unintentional), initial encounter; F41.0 Panic disorder [episodic paroxysmal anxiety]
CPT/HCPCS: 31500; 36000; 36415; 36600; 51702; 70450; 71045; 80048; 80053; 80307; 81001; 82375; 82803; 83605; 83735; 83880; 84443; 84484; 85025; 85027; 85610; 85730; 87086; 90791; 93005; 93041; 93268; 94760; 94770; 94799; 96360; 96361; 96365; 96374; 96375; 96376; 99285; 99291; G0378; G0481; Q3014; J1650; J2060; J2704; A9270-GY; G0480

== ENCOUNTER 2020-12-20 15:04 | Emergency (ER) | payer OTHER ==
[2020-12-20 15:24] VITALS: BP 104/80; PULSE 75; O2SAT 100
[2020-12-20 15:36] LABS: Appearance CLOUDY (CLEAR); Bilirubin NEGATIVE (NEGATIVE); Blood MODERATE Ery/ul (0-5); Glucose NEGATIVE (NEGATIVE); Ketones NEGATIVE (NEGATIVE); Leukocyte Esterase LARGE (NEGATIVE); Nitrite NEGATIVE (NEGATIVE); Protein,Urine Dip 100 (Negative); RBC 51-100 /HPF (0-2); Specific Gravity 1.023 (1.005-1.025); Urobilinogen NEGATIVE mg/dL (0-1); WBC >100 /HPF (0-5)
[2020-12-20 15:38] LABS: Bacteria FEW /HPF (NEGATIVE)
--- NOTE | 2020-12-20 16:10 | ERPHSYRPT ---
- History of Present Illness Time Seen by Provider: 12/20/20 15:40 Source: patient, family Exam Limitations: no limitations Patient Subjective Stated Complaint: bilat flank pain, abd pain, burning with urination x 3 days Triage Nursing Assessment: . Physician History: Patient is a 40-year-old female who presents with symptoms of urinary tract infection including dysuria low back pain bilateral flank pain frequency urgency voiding small amounts as well as some fever chills and sweats. Timing/Duration: day(s) (2) Quality: burning Onset Location: suprapubic, right flank, left flank Pain Radiation: none Severity of Pain-Max: mild Severity of Pain-Current: mild Prior abdominal problems: none Sexual intercourse history: non-contributory Modifying Factors: Improves With: urinating Associated Symptoms: abdominal pain, fever, chills, urinary frequency, lower back pain Allergies/Adverse Reactions: No Known Drug Allergies Allergy (Verified 12/20/20 15:17) Hx Tetanus, Diphtheria Vaccination/Date Given: Yes Hx Influenza Vaccination/Date Given: Yes Hx Pneumococcal Vaccination/Date Given: No Travel Risk - International Travel Have you traveled outside of the country in past 3 weeks: No - Coronavirus Screening Are you exhibiting any of the following symptoms?: No Close contact with a COVID-19 positive Pt in past 14-21 Days: No - Vaccine Status Have you recieved a Covid-19 vaccination: No - Review of Systems Constitutional: No Fever, No Chills Eyes: No Symptoms Ears, Nose, & Throat: No Symptoms Respiratory: No Cough, No Dyspnea Cardiac: No Chest Pain, No Edema, No Syncope Abdominal/Gastrointestinal: No Abdominal Pain, No Nausea, No Vomiting, No Diarrhea Genitourinary Symptoms: Dysuria, Frequency, Hesitancy, Incontinence, Urgency, Flank Pain Musculoskeletal: No Back Pain, No Neck Pain Skin: No Rash Neurological: No Dizziness, No Focal Weakness, No Sensory Changes Psychological: No Symptoms Endocrine: No Symptoms All Other Systems: Reviewed and Negative - Past Medical History Pertinent Past Medical History: Yes Neurological History: No Pertinent History ENT History: No Pertinent History Cardiac History: No Pertinent History Respiratory History: No Pertinent History Endocrine Medical History: No Pertinent History Musculoskeletal History: Fibromyalgia, Other GI Medical History: No Pertinent History History: No Pertinent History Psycho-Social History: Anxiety, Depression, Panic Disorder Female Reproductive Disorders: No Pertinent History Other Medical History: [place] spotted [place] fever. lyme disease. hep c - Past Surgical History Past Surgical History: Yes Neuro Surgical History: No Pertinent History Cardiac: No Pertinent History Respiratory: No Pertinent History Gastrointestinal: No Pertinent History Genitourinary: No Pertinent History Musculoskeletal: No Pertinent History Female Surgical History: Tubal Ligation Other Surgical History: port placed and removed, tonsils. partial tubal - Social History Smoking Status: Current every day smoker How long have you smoked: 23 Exposure to second hand smoke: Yes Drug Use: none Patient Lives Alone: No - Female History Hx Now: No - Nursing Vital Signs Nursing Vital Signs: Initial Vital Signs Temperature 97.7 F 12/20/20 15:17 Pulse Rate 75 12/20/20 15:17 Respiratory Rate 18 12/20/20 15:17 Blood Pressure 104/80 12/20/20 15:17 O2 Sat by Pulse Oximetry 100 12/20/20 15:17 Pain Scale Pain Intensity 9 - Physical Exam General Appearance: no apparent distress, alert Eye Exam: PERRL/EOMI, eyes nml inspection Ears, Nose, Throat Exam: normal ENT inspection, TMs normal, pharynx normal, moist mucous membranes Neck Exam: normal inspection, non-tender, supple, full range of motion Respiratory Exam: normal breath sounds, lungs clear, No respiratory distress Cardiovascular Exam: regular rate/rhythm, normal heart sounds, normal peripheral pulses Gastrointestinal/Abdomen Exam: soft, tenderness (In the suprapubic area), No mass Back Exam: normal inspection, normal range of motion, No CVA tenderness, No vertebral tenderness Extremity Exam: normal inspection, normal range of motion, pelvis stable Neurologic Exam: alert, oriented x 3, cooperative, analytical lead II-XII nml as tested, normal mood/affect, sensation nml, No motor deficits Skin Exam: normal color, warm, dry Lymphatic Exam: No adenopathy SpO2 Interpretation: normal SpO2: 100 O2 Delivery: Room Air - Course Nursing assessment & vital signs reviewed: Yes Ordered Tests: Active Orders 24 hr Category Date Time Status CULTURE,URINE Stat Lab 12/20/20 15:25 Received HCG,QUALITATIVE URINE Stat Lab 12/20/20 15:25 Completed UA W/RFX UR CULTURE Stat Lab 12/20/20 15:25 Completed Lab/Rad Data: Laboratory Results 12/20/20 12/20/20 Range/Units 15:25 15:25 Urine Color YELLOW (YELLOW) Urine Appearance CLOUDY (CLEAR) Urine pH 5.0 (5-6) Ur Specific [place] 1.023 (1.005-1.025) Urine Protein 100 (Negative) Urine Ketones NEGATIVE (NEGATIVE) Urine Blood MODERATE (0-5) [place] Urine Nitrite NEGATIVE (NEGATIVE) Urine Bilirubin NEGATIVE (NEGATIVE) Urine Urobilinogen NEGATIVE (0-1) mg/dL Ur Leukocyte Esterase LARGE (NEGATIVE) Urine WBC (Auto) >100 (0-5) /HPF Urine RBC (Auto) 51-100 (0-2) /HPF U Epithel Cells (Auto) NONE (FEW) /HPF Urine Bacteria (Auto) FEW (NEGATIVE) /HPF Urine Culture Reflexed YES (NO) Urine Glucose NEGATIVE (NEGATIVE) mg/dL Urine HCG, Qual NEGATIVE (Negative) - Progress Progress: unchanged Air Movement: good Blood Culture(s) Obtained: No Antibiotics given: No - Departure Departure Disposition: Home Clinical Impression: Urinary tract infection Condition: Stable Critical Care Time: No Referrals: DOCTOR,NO FAMILY [Primary Care Provider] - Instructions: Urinary Tract Infection, Adult (DC) Prescriptions: Smz/Tmp Ds Tablet [Bactrim Ds Tablet] 1 udtab PO BID #14 tablet Phenazopyridine HCl 200 mg [Pyridium 200 mg] 200 mg PO TID 2 Days #6 tablet
== END 2020-12-20 16:24 | disposition home or self-care (01) ==
LOC: ED 15:04
DX: N39.0 Urinary tract infection, site not specified (principal)
CPT/HCPCS: 81001; 84703; 87077; 87086; 87186; 99283

== ENCOUNTER 2021-11-28 15:39 | Emergency (ER) | payer OTHER ==
[2021-11-28] MEDS ORDERED: Sodium Chloride 0.9% 1000 ML 1,000 ML IV STA (15:55)
[2021-11-28 15:56] VITALS: O2SAT 100
[2021-11-28] MEDS ORDERED: Reglan 10 MG/2 ML IV ONE (15:57)
[2021-11-28 16:24] LABS: Appearance CLEAR (CLEAR); Bilirubin NEGATIVE (NEGATIVE); Dipstick done @ ? MAIN LAB; Epithelial Cells RARE /HPF (FEW); Glucose NEGATIVE (NEGATIVE); Ketones NEGATIVE (NEGATIVE); Mucus SLIGHT /HPF (NEGATIVE); Nitrite NEGATIVE (NEGATIVE); Protein,Urine Dip NEGATIVE (Negative); RBC NEGATIVE Ery/ul (0-5); Urobilinogen 0.2 mg/dL (0-1); WBC 0-2 /HPF (0-5)
[2021-11-28 16:25] LABS: Urine Cultured Indicated? NO
[2021-11-28 16:45] LABS: ALBUMIN 4.4 g/dL (3.5-5.0); ALKALINE PHOSPHATASE 81 U/L (38-126); AMYLASE 72 U/L (30-110); ANION GAP 14.4 MEQ/L (5-15); BLOOD UREA NITROGEN 10 mg/dL (7-17); CHLORIDE 96 mmol/L (98-107); Calcium 9.4 mg/dL (8.4-10.2); Carbon Dioxide 25 mmol/L (22-30); Creatinine 1 0.68 mg/dL (0.52-1.04); EST GLOMERULAR FILTRATION RATE > 60.0 ML/MIN; Glucose 142 mg/dL (74-106); LIPASE 52 U/L (23-300); Potassium 4.2 mmol/L (3.5-5.1); SGOT/AST 43 U/L (14-36); SGPT/ALT 53 U/L (0-35); SODIUM 131 mmol/L (137-145); Total Protein 7.6 g/dL (6.3-8.2)
[2021-11-28] MEDS ORDERED: Reglan 10 MG/2 ML ONE (16:50)
[2021-11-28] MEDS ORDERED: Sodium Chloride 0.9% 1000 ML 1,000 ML ONE (16:50)
[2021-11-28 17:00] LABS: Hemoglobin 14.4 g/dL (12.0-16.0); Mean Cell Volume 92.7 fL (78-100); Mean Corpuscular Hgb Concent. 33.5 g/dL (32-36); Mean Platelet Volume 9.1 fL (7.5-11.0); Platelet Count 169 x10^3/uL (150-450); Red Blood Count 4.64 x10^6/uL (4.1-5.4); Red Cell Distribution Width 12.8 % (11.5-14.0)
[2021-11-28 17:02] LABS: INFLUENZA A NEGATIVE (NEGATIVE); INFLUENZA B NEGATIVE (NEGATIVE); RESPIRATORY SYNCTIAL VIRUS NEGATIVE (Negative); SARS-CoV-2 Xpert Express NEGATIVE (NEGATIVE)
--- NOTE | 2021-11-28 17:08 | ERPHSYRPT ---
- History of Present Illness Time Seen by Provider: 11/28/21 15:55 Historian: patient Exam Limitations: no limitations Patient Subjective Stated Complaint: PT TO ER WITH COMPLAINTS OF DIZZINESS X 4 DAYS. PT STATES SHE FEELS LIKE SHE HAS HAD SOME FLASHES OF LIGHT IN HER RIGHT EYE. PT STATES SHE ALSO HAS SOME LOWER ABDOMINAL PAIN X 1 WEEK. PT WITH NAUSEA. PT STATES SHE HAS HAD HOT AND COLD SWEATS. Triage Nursing Assessment: PT A&OX4. PT AMBULATORY. SKIN PWD. PT WITH DIZZINESS OFF AND ON. LOWER ABDOMINAL PAIN X 1 WEEK. NO OBVIOUS DISTRESS. Physician History: Patient is a 41-year-old white female who has had a complaint of dizziness for 4 to 5 days she has some lower abdominal pain associated with nausea but no vomi ting or diarrhea she is also had fever chills and sweats. She also complains of a strobe light effect in her right eye on and off although her vision is not affected she has had some vertigo or spinning her lower abdominal pain and seems fairly constant. Timing/Duration: day(s) (5) Activities at Onset: none Quality: burning, cramping Abdominal Pain Onset Location: suprapubic Pain Radiation: no radiation Severity of Pain-Max: mild Severity of Pain-Current: mild Previous symptoms: no prior history Allergies/Adverse Reactions: No Known Drug Allergies Allergy (Verified 11/28/21 15:56) Hx Tetanus, Diphtheria Vaccination/Date Given: Yes Hx Influenza Vaccination/Date Given: Yes Hx Pneumococcal Vaccination/Date Given: No Travel Risk - International Travel Have you traveled outside of the country in past 3 weeks: No - Coronavirus Screening Are you exhibiting any of the following symptoms?: No - Vaccine Status Have you recieved a Covid-19 vaccination: No - Review of Systems Constitutional: No Fever, No Chills Eyes: Other (Vaginal flashing sensation right eye) Ears, Nose, & Throat: No Symptoms Respiratory: No Cough, No Dyspnea Cardiac: No Chest Pain, No Edema, No Syncope Abdominal/Gastrointestinal: Abdominal Pain, No Nausea, No Vomiting, No Diarrhea Genitourinary Symptoms: No Dysuria Musculoskeletal: No Back Pain, No Neck Pain Skin: No Rash Neurological: Dizziness, No Focal Weakness, No Sensory Changes Psychological: No Symptoms Endocrine: No Symptoms All Other Systems: Reviewed and Negative - Past Medical History Pertinent Past Medical History: Yes Neurological History: No Pertinent History ENT History: No Pertinent History Cardiac History: No Pertinent History Respiratory History: No Pertinent History Endocrine Medical History: No Pertinent History Musculoskeletal History: Fibromyalgia, Other GI Medical History: No Pertinent History History: No Pertinent History Psycho-Social History: Anxiety, Depression, Panic Disorder Female Reproductive Disorders: No Pertinent History Other Medical History: domitila spotted mountain fever. lyme disease. hep c - Past Surgical History Past Surgical History: Yes Neuro Surgical History: No Pertinent History Cardiac: No Pertinent History Respiratory: No Pertinent History Gastrointestinal: No Pertinent History Genitourinary: No Pertinent History Musculoskeletal: No Pertinent History Female Surgical History: Tubal Ligation Other Surgical History: port placed and removed, tonsils. partial tubal - Social History Smoking Status: Current every day smoker How long have you smoked: 23 Exposure to second hand smoke: Yes Drug Use: none Patient Lives Alone: No - Female History Hx Now: No - Nursing Vital Signs Nursing Vital Signs: Initial Vital Signs Temperature 97.8 F 11/28/21 15:49 Pulse Rate 91 H 11/28/21 15:49 Respiratory Rate 18 11/28/21 15:49 Blood Pressure 101/68 11/28/21 15:49 O2 Sat by Pulse Oximetry 100 11/28/21 15:49 Pain Scale Pain Intensity 8 - Physical Exam General Appearance: no apparent distress, alert Eye Exam: PERRL/EOMI, eyes nml inspection, other (Funduscopic exam is normal bilaterally) Ears, Nose, Throat Exam: normal ENT inspection, pharynx normal, moist mucous membranes Neck Exam: normal inspection, non-tender, supple, full range of motion Respiratory Exam: normal breath sounds, lungs clear, No respiratory distress Cardiovascular Exam: regular rate/rhythm, normal heart sounds Gastrointestinal/Abdomen Exam: normal bowel sounds, tenderness (Lower abdomen), guarding, No mass, No rebound Back Exam: normal inspection, normal range of motion, No CVA tenderness, No vertebral tenderness Extremity Exam: normal inspection, normal range of motion, pelvis stable Neurologic Exam: alert, oriented x 3, cooperative, normal mood/affect, nml cerebellar function, sensation nml, No motor deficits Skin Exam: normal color, warm, dry Lymphatic Exam: adenopathy SpO2: 100 O2 Delivery: Room Air - Course Nursing assessment & vital signs reviewed: Yes EKG Interpreted by Me: RATE (91), Sinus Rhythm, NORMAL AXIS, NORMAL INTERVALS, NORMAL QRS, Non-specific ST Changes - CT Exams Abdomen/Pelvis CT Interpretation: Tele-radiologist Report Ordered Tests: Active Orders 24 hr Category Date Time Status EKG-ER Only STAT Care 11/28/21 15:55 Active IV Insertion STAT Care 11/28/21 15:55 Active ABDOMEN AND PELVIS W/0 CONTRAS [CT] Stat Exams 11/28/21 16:26 Taken CHEST 1 VIEW (PORTABLE) Stat Exams 11/28/21 15:56 Taken AMYLASE Stat Lab 11/28/21 16:29 Completed CBC W DIFF Stat Lab 11/28/21 16:29 Completed CMP Stat Lab 11/28/21 16:29 Completed HCG,QUALITATIVE URINE Stat Lab 11/28/21 16:17 Completed LIPASE Stat Lab 11/28/21 16:29 Completed Lactic Acid Stat Lab 11/28/21 16:22 Completed Manual Differential NC Stat Lab 11/28/21 16:29 Completed TROPONIN Q3H Lab 11/28/21 16:29 Completed TROPONIN Q3H Lab 11/28/21 19:00 Ordered TROPONIN Q3H Lab 11/28/21 22:00 Ordered TROPONIN Q3H Lab 11/29/21 01:00 Ordered TROPONIN Q3H Lab 11/29/21 04:00 Ordered UA W/RFX CULTURE Stat Lab 11/28/21 16:17 Completed Medication Summary Discontinued Medications Generic Name Dose Route Start Last Admin Trade Name Francisq PRN Reason Stop Dose Admin Sodium Chloride 1,000 mls @ 999 mls/hr 11/28/21 15:55 11/28/21 16:53 Sodium Chloride 0.9% 1000 Ml IV 11/28/21 16:55 999 mls/hr .Q1H1M STA Administration Sodium Chloride Confirm 11/28/21 16:50 Sodium Chloride 0.9% 1000 Ml Administered 11/28/21 16:51 Dose 1,000 mls @ ud .ROUTE .STK-MED ONE Metoclopramide HCl 10 mg 11/28/21 15:57 11/28/21 16:55 Metoclopramide Hcl 10 Mg/2 Ml Vial IV 11/28/21 15:58 10 mg STAT ONE Administration Metoclopramide HCl Confirm 11/28/21 16:50 Metoclopramide Hcl 10 Mg/2 Ml Vial Administered 11/28/21 16:51 Dose 10 mg .ROUTE .STK-MED ONE Lab/Rad Data: Laboratory Result Diagrams 11/28/21 16:29 11/28/21 16:29 Laboratory Results 11/28/21 11/28/21 11/28/21 Range/Units 16:29 16:29 16:29 WBC 4.0 (4.0-10.5) x10^3/uL RBC 4.64 (4.1-5.4) x10^6/uL Hgb 14.4 (12.0-16.0) g/dL Hct 43.0 (35-47) % MCV 92.7 (78-100) fL MCH 31.0 (26-32) pg MCHC 33.5 (32-36) g/dL RDW 12.8 (11.5-14.0) % Plt Count 169 (150-450) x10^3/uL MPV 9.1 (7.5-11.0) fL Sodium 131 L (137-145) mmol/L Potassium 4.2 (3.5-5.1) mmol/L Chloride 96 L (98-107) mmol/L Carbon Dioxide 25 (22-30) mmol/L Anion Gap 14.4 (5-15) MEQ/L BUN 10 (7-17) mg/dL Creatinine 0.68 (0.52-1.04) mg/dL Estimated GFR > 60.0 ML/MIN Glucose 142 H (74-106) mg/dL Lactic Acid (0.4-2.0) Calcium 9.4 (8.4-10.2) mg/dL Total Bilirubin 0.50 (0.2-1.3) mg/dL AST 43 H (14-36) U/L ALT 53 H (0-35) U/L Alkaline Phosphatase 81 (38-126) U/L Troponin I < 0.012 (0.000-0.034) ng/mL Serum Total Protein 7.6 (6.3-8.2) g/dL Albumin 4.4 (3.5-5.0) g/dL Amylase 72 (30-110) U/L Lipase 52 (23-300) U/L Urinalys Dipstick Clnc Urine Color (YELLOW) Urine Appearance (CLEAR) Urine pH (5-6) Ur Specific [place] (1.005-1.025) POC Urine Protein Conf (Negative) Urine Ketones (NEGATIVE) Urine Nitrite (NEGATIVE) Urine Bilirubin (NEGATIVE) Urine Urobilinogen (0-1) mg/dL Urine Leukocytes (NEGATIVE) Urine WBC (Auto) (0-5) /HPF Urine RBC (Auto) (0-2) /HPF U Epithel Cells (Auto) (FEW) /HPF Urine Bacteria (Auto) (NEGATIVE) /HPF Urine RBC (0-5) [place]/ul Urine Mucus (Auto) (NEGATIVE) /HPF Ur Culture Indicated? Urine Glucose (NEGATIVE) mg/dL Urine HCG, Qual (Negative) Influenza Type A Ag (NEGATIVE) Influenza Type B Ag (NEGATIVE) RSV (PCR) (Negative) SARS-CoV-2 (PCR) (NEGATIVE) 11/28/21 11/28/21 11/28/21 Range/Units 16:22 16:17 16:17 WBC (4.0-10.5) x10^3/uL RBC (4.1-5.4) x10^6/uL Hgb (12.0-16.0) g/dL Hct (35-47) % MCV (78-100) fL MCH (26-32) pg MCHC (32-36) g/dL RDW (11.5-14.0) % Plt Count (150-450) x10^3/uL MPV (7.5-11.0) fL Sodium (137-145) mmol/L Potassium (3.5-5.1) mmol/L Chloride (98-107) mmol/L Carbon Dioxide (22-30) mmol/L Anion Gap (5-15) MEQ/L BUN (7-17) mg/dL Creatinine (0.52-1.04) mg/dL Estimated GFR ML/MIN Glucose (74-106) mg/dL Lactic Acid 2.1 H (0.4-2.0) Calcium (8.4-10.2) mg/dL Total Bilirubin (0.2-1.3) mg/dL AST (14-36) U/L ALT (0-35) U/L Alkaline Phosphatase (38-126) U/L Troponin I (0.000-0.034) ng/mL Serum Total Protein (6.3-8.2) g/dL Albumin (3.5-5.0) g/dL Amylase (30-110) U/L Lipase (23-300) U/L Urinalys Dipstick Clnc Urine Color (YELLOW) Urine Appearance (CLEAR) Urine pH (5-6) Ur Specific [place] (1.005-1.025) POC Urine Protein Conf (Negative) Urine Ketones (NEGATIVE) Urine Nitrite (NEGATIVE) Urine Bilirubin (NEGATIVE) Urine Urobilinogen (0-1) mg/dL Urine Leukocytes (NEGATIVE) Urine WBC (Auto) (0-5) /HPF Urine RBC (Auto) (0-2) /HPF U Epithel Cells (Auto) (FEW) /HPF Urine Bacteria (Auto) (NEGATIVE) /HPF Urine RBC (0-5) [place]/ul Urine Mucus (Auto) (NEGATIVE) /HPF Ur Culture Indicated? Urine Glucose (NEGATIVE) mg/dL Urine HCG, Qual NEGATIVE (Negative) Influenza Type A Ag NEGATIVE (NEGATIVE) Influenza Type B Ag NEGATIVE (NEGATIVE) RSV (PCR) NEGATIVE (Negative) SARS-CoV-2 (PCR) NEGATIVE (NEGATIVE) 11/28/21 Range/Units 16:17 WBC (4.0-10.5) x10^3/uL RBC (4.1-5.4) x10^6/uL Hgb (12.0-16.0) g/dL Hct (35-47) % MCV (78-100) fL MCH (26-32) pg MCHC (32-36) g/dL RDW (11.5-14.0) % Plt Count (150-450) x10^3/uL MPV (7.5-11.0) fL Sodium (137-145) mmol/L Potassium (3.5-5.1) mmol/L Chloride (98-107) mmol/L Carbon Dioxide (22-30) mmol/L Anion Gap (5-15) MEQ/L BUN (7-17) mg/dL Creatinine (0.52-1.04) mg/dL Estimated GFR ML/MIN Glucose (74-106) mg/dL Lactic Acid (0.4-2.0) Calcium (8.4-10.2) mg/dL Total Bilirubin (0.2-1.3) mg/dL AST (14-36) U/L ALT (0-35) U/L Alkaline Phosphatase (38-126) U/L Troponin I (0.000-0.034) ng/mL Serum Total Protein (6.3-8.2) g/dL Albumin (3.5-5.0) g/dL Amylase (30-110) U/L Lipase (23-300) U/L Urinalys Dipstick Clnc MAIN LAB Urine Color YELLOW (YELLOW) Urine Appearance CLEAR (CLEAR) Urine pH 6.0 (5-6) Ur Specific [place] 1.010 (1.005-1.025) POC Urine Protein Conf NEGATIVE (Negative) Urine Ketones NEGATIVE (NEGATIVE) Urine Nitrite NEGATIVE (NEGATIVE) Urine Bilirubin NEGATIVE (NEGATIVE) Urine Urobilinogen 0.2 (0-1) mg/dL Urine Leukocytes NEGATIVE (NEGATIVE) Urine WBC (Auto) 0-2 (0-5) /HPF Urine RBC (Auto) NONE (0-2) /HPF U Epithel Cells (Auto) RARE (FEW) /HPF Urine Bacteria (Auto) NONE (NEGATIVE) /HPF Urine RBC NEGATIVE (0-5) [place]/ul Urine Mucus (Auto) SLIGHT (NEGATIVE) /HPF Ur Culture Indicated? NO Urine Glucose NEGATIVE (NEGATIVE) mg/dL Urine HCG, Qual (Negative) Influenza Type A Ag (NEGATIVE) Influenza Type B Ag (NEGATIVE) RSV (PCR) (Negative) SARS-CoV-2 (PCR) (NEGATIVE) - Progress Progress: improved - Departure Departure Disposition: Home Clinical Impression: Labyrinthitis, Constipation Condition: Stable Critical Care Time: No Referrals: DOCTOR,NO FAMILY [Primary Care Provider] - Follow up/PCP as directed Instructions: Dizziness, Nonvertigo, (DC) Prescriptions: Meclizine HCl 25 mg [Antivert 25 mg] 25 mg PO Q8H PRN 8 Days #10 tablet PRN Reason: Dizziness
[2021-11-28 17:19] VITALS: BP 86/60; PULSE 92
[2021-11-28 19:22] LABS: BAND 7 % (0.0-2.0); Basophil 1 % (0.0-1.0); Eosinophil 1 % (0.00-3.0); Lymphocytes 16 % (24-44); Monocyte 3 % (0.0-12.0); Platelet Estimate NORMAL (NORMAL); Total Cells Counted 100
--- NOTE | 2021-11-28 21:19 | XRAY ---
Indication: Pelvic pain and nausea. Multiple contiguous images obtained through the abdomen and pelvis without contrast. Comparison: None Lung bases clear. Heart not enlarged. Stomach distended with food. Noncontrasted stomach and bowel loops appear nonobstructed. Moderate diffuse scattered colonic fecal debris throughout. Left hemicolon and rectum demonstrates intraluminal radiopacities either ingested medication/bismuth versus barium. No free fluid/air. Left pelvis demonstrates wire, clinical reported "springs in fallopian tubes." Remaining liver, gallbladder, pancreas, spleen, adrenal glands, kidneys, ureters, bladder, and uterus are unremarkable for noncontrast exam. Minimal aortoiliac calcifications without AAA. Osseous structures intact. Impression: Moderate fecal stasis. Remaining CT abdomen/pelvis without contrast exam is negative. Comment: Preliminary interpretation made by [facility]. No critical discrepancy.
--- NOTE | 2021-11-28 21:21 | XRAY ---
Indication: Chest pain and cough. Comparison: March 01, 2019 Portable chest hyperinflated and clear. Heart not enlarged. Bony thorax intact. No new/acute findings.
== END 2021-11-28 17:23 | disposition home or self-care (01) ==
LOC: ED 15:39
DX: H83.09 Labyrinthitis, unspecified ear (principal); K59.00 Constipation, unspecified; R42 Dizziness and giddiness; R10.30 Lower abdominal pain, unspecified; R11.0 Nausea; R50.9 Fever, unspecified; Z72.0 Tobacco use; Z28.310 Unvaccinated for COVID-19
CPT/HCPCS: 0241U; 36000; 36415; 71045; 74176; 80053; 81015; 81025; 82150; 83605; 83690; 84484; 85025; 93005; 96374; 99284

== ENCOUNTER 2023-12-17 21:29 | Emergency (ER) | payer OTHER ==
[2023-12-17 21:55] VITALS: RESP 16; TEMP 97.3
[2023-12-17 23:08] VITALS: BP 100/66; PULSE 74
[2023-12-17 23:32] VITALS: O2SAT 100
--- NOTE | 2023-12-17 23:32 | ERPHSYRPT ---
- History of Present Illness Time Seen by Provider: 12/17/23 23:23 Source: patient Exam Limitations: no limitations Patient Subjective Stated Complaint: pt states she was stung multiple times on her face and back yesterday and has swelling in her face today Triage Nursing Assessment: pt alert and oriented, answers questions approp. pt ambulates into room with steady gait noted. respirations nonlabored. skin warm and dry. Physician History: Pt states yesterday she was bitten by an insect on the nose and back with resultant swelling of her face; denies any difficulty swallowing, denies dyspnea, denies chest pain. Allergies/Adverse Reactions: No Known Drug Allergies Allergy (Verified 12/17/23 21:55) Hx Tetanus, Diphtheria Vaccination/Date Given: Yes Hx Influenza Vaccination/Date Given: No Hx Pneumococcal Vaccination/Date Given: No Immunizations Up to Date: Yes Travel Risk - International Travel Have you traveled outside of the country in past 3 weeks: No - Emerging Infectious Disease Are you exhibiting symptoms associated with any current EIDs: No - Review of Systems Ears, Nose, & Throat: Other (facial edema) Respiratory: No Dyspnea Cardiac: No Chest Pain Abdominal/Gastrointestinal: No Abdominal Pain, No Vomiting - Past Medical History Pertinent Past Medical History: Yes Neurological History: No Pertinent History ENT History: No Pertinent History Cardiac History: No Pertinent History Respiratory History: No Pertinent History Endocrine Medical History: No Pertinent History Musculoskeletal History: Fibromyalgia, Other GI Medical History: No Pertinent History History: No Pertinent History Psycho-Social History: Anxiety, Depression, Panic Disorder Female Reproductive Disorders: No Pertinent History Other Medical History: domitila spotted mountain fever. lyme disease. hep c - Past Surgical History Past Surgical History: Yes Neuro Surgical History: No Pertinent History Cardiac: No Pertinent History Respiratory: No Pertinent History Gastrointestinal: No Pertinent History Genitourinary: No Pertinent History Musculoskeletal: No Pertinent History Female Surgical History: Tubal Ligation Other Surgical History: port placed and removed, tonsils. partial tubal - Female History Hx Last Menstrual Period: few months Hx Now: No - Social History Smoking Status: Current every day smoker How long have you smoked: 20+ Exposure to second hand smoke: No Drug Use: none Patient Lives Alone: No - Social Determinants of Health Will the patient participate in the screening: Declined to provide - Nursing Vital Signs Nursing Vital Signs: Initial Vital Signs Temperature 97.3 F 12/17/23 21:39 Pulse Rate 82 12/17/23 21:39 Respiratory Rate 16 12/17/23 21:39 Blood Pressure 91/56 12/17/23 21:39 O2 Sat by Pulse Oximetry 100 12/17/23 21:39 Pain Scale Pain Intensity 6 - Physical Exam General Appearance: alert Eye Exam: PERRL/EOMI, other (mild edema of eyelids and forehead ) Ears, Nose, Throat Exam: pharynx normal Neck Exam: normal inspection Respiratory Exam: lungs clear Cardiovascular Exam: normal heart sounds Gastrointestinal/Abdomen Exam: normal bowel sounds Extremity Exam: No pedal edema Neurologic Exam: alert, cooperative Skin Exam: No cyanosis SpO2 Interpretation: normal SpO2: 100 O2 Delivery: Room Air - Course Nursing assessment & vital signs reviewed: Yes Ordered Tests: Medication Summary Generic Name Dose Route Start Last Admin Trade Name Freq PRN Reason Stop Dose Admin Dexamethasone Sodium Phosphate 10 mg 12/17/23 23:34 Dexamethasone Sod Phosphate 10 Mg/Ml IM 12/17/23 23:35 STAT ONE Hydroxyzine HCl 25 mg 12/17/23 23:33 Hydroxyzine Hcl 25 Mg Tablet PO 12/17/23 23:34 STAT ONE - Progress Progress: unchanged Counseled pt/family regarding: diagnosis, need for follow-up - Departure Departure Disposition: Home Clinical Impression: angioedema of face, Insect bite Condition: Stable Critical Care Time: No Referrals: DOCTOR,NO FAMILY [Primary Care Provider] - Follow up/PCP as directed Instructions: Insect Bites and Stings (DC) Additional Instructions: Follow up with private doctor tomorrow. Prescriptions: Hydroxyzine HCl 25 mg [Atarax 25 mg] 25 mg PO Q4H PRN PRN #30 tablet PRN Reason: Allergies
[2023-12-17] MEDS ORDERED: DECADRON 10MG INJ. ONE (23:44)
[2023-12-17] MEDS ORDERED: ATARAX 25 MG ONE (23:45)
[2023-12-17] MEDS: ATARAX 25 MG PO ONE (23:46)
[2023-12-17] MEDS: DECADRON 10MG INJ. IM ONE (23:47)
== END 2023-12-17 23:54 | disposition home or self-care (01) ==
LOC: ED 21:29
DX: S00.36XA Insect bite (nonvenomous) of nose, initial encounter (principal); S30.860A Insect bite (nonvenomous) of lower back and pelvis, initial encounter; T78.3XXA Angioneurotic edema, initial encounter; Z72.0 Tobacco use
CPT/HCPCS: 96372; 99283; J1100; A9270-GY